=== PATIENT | male | born 1990 | race Caucasian/White ===

== ENCOUNTER 2016-10-27 20:38 | Emergency (ER) | payer OTHER ==
--- NOTE | 2016-10-27 21:54 | XRAY Preliminary Report ---
Exam: XR Chest 2 View PA/LAT IMPRESSION: 1. Bronchial wall thickening noted. Findings non specific but often seen in viral pneumonitis and re active airway disease. 2. No consolidation. [facility] SITE ID: [id number]
--- NOTE | 2016-10-27 21:57 | XRAY Report ---
EXAM: CHEST RADIOGRAPHY EXAM DATE: 10/27/2016 09:40 PM. CLINICAL HISTORY: Wheezing. COMPARISON: 11/30/2008. TECHNIQUE: 2 views. FINDINGS: Lungs/Pleura: Perihilar bronchial wall thickening noted. No consolidation. No effusion or pneumothor ax. Normal volumes. Mediastinum: Heart and mediastinal contours are unremarkable. Other: None. IMPRESSION: 1. Bronchial wall thickening noted. Findings non specific but often seen in viral pneumonitis and re active airway disease. 2. No consolidation. [facility] Referring Provider Line: [phone] SITE ID: [id number]
[2016-10-27] MEDS ORDERED: predniSONE 20 MG TABLET PO STA (22:33)
[2016-10-27] MEDS ORDERED: IPRATROPIUM/ALBUTEROL 3 ML NEB INH STA (22:34)
--- NOTE | 2016-10-27 22:37 | ED Physician Documentation ---
PD HPI URI - Stated complaint Stated Complaint: SOA/COUGH - Chief complaint Chief Complaint: Resp - History obtained from History obtained from: Patient, Family - History of Present Illness Timing - onset: How many weeks ago (1) Timing duration: Weeks (1) Timing details: Gradual onset Pain level max: 2 Pain level now: 2 Associated symptoms: Nasal congestion, Rhinorrhea, Productive cough (green), Dyspnea (wheezing). No: Fever, Chills, Sweats, Hemoptysis, Chest pain Contributing factors: Sick contact Improves by: MDI/nebulizer (albuterol, combivent) Worsened by: Activity, Breathing Similar symptoms before: Diagnosis (uri with wheezing) Recently seen: Not recently seen Review of Systems Constitutional: denies: Fever, Chills Nose: reports: Rhinorrhea / runny nose, Congestion Respiratory: reports: Cough, Wheezing GI: denies: Vomiting Skin: denies: Rash Musculoskeletal: denies: Neck pain, Back pain Neurologic: denies: Headache PD PAST MEDICAL HISTORY - Past Medical History Respiratory: Asthma Neuro: Headache/migraine GI: Crohn's disease - Past Surgical History Past Surgical History: Yes General: Colonoscopy HEENT: Tonsil/Adenoidectomy - Present Medications Home Medications: Ambulatory Orders Medication Instructions Recorded Confirmed Albuterol Sulf [Ventolin Hfa 2 puffs INH Q4HR PRN #1 inhaler 10/27/16 10/29/16 Inhaler] Albuterol Sulfate [Proventil Hfa 1 - 2 puffs INH Q4H PRN 10/27/16 10/29/16 Inhaler] Benzonatate [Tessalon Perle] 100 - 200 mg PO TID PRN #30 capsule 10/27/16 Ipratropium/Albuterol [Combivent 4 gm IH PRN PRN 10/27/16 10/29/16 Respimat] Prednisone 40 mg PO DAILY #10 tablet 10/27/16 10/29/16 Azithromycin [Zithromax] 250 mg PO DAILY #4 tablet 10/29/16 Omeprazole [PriLOSEC] 20 mg PO DAILY #14 capsule 10/29/16 - Allergies Allergies/Adverse Reactions: Allergies Allergy/AdvReac Type Severity Reaction Status Date / Time cefaclor [From Ceclor] Allergy Intermediate Hives Verified 11/11/15 23:30 mesalamine [From Asacol] Allergy Intermediate Hives Verified 11/11/15 23:30 Sulfa (Sulfonamide Allergy Intermediate Hives Verified 11/11/15 23:30 Antibiotics) - Social History Does the pt smoke?: No Smoking Status: Never smoker Does the pt drink ETOH?: Yes Does the pt have substance abuse?: No - Immunizations Immunizations are current?: Yes - POLST Patient has POLST: No PD ED PE NORMAL - Vitals Vital signs reviewed: Yes - General General: Alert and oriented X 3, No acute distress, Well developed/nourished - HEENT HEENT: PERRL, Ears normal, Moist mucous membranes, Pharynx benign, Other (no sinus tenderness) - Neck Neck: Supple, no meningeal sign, No adenopathy - Cardiac Cardiac: RRR, Strong equal pulses - Respiratory Respiratory: No respiratory distress, Other (wheezing and decreased BS bilaterally. ) - Abdomen Abdomen: Soft, Non tender, Non distended - Derm Derm: Warm and dry - Neuro Neuro: Alert and oriented X 3 - Psych Psych: Normal mood, Normal affect Results - Vitals Vitals: Oxygen O2 Source Room air - Rads (name of study) cxr Radiology: Prelim report reviewed, EMP read contemporaneously, See rad report ( Bronchial wall thickening noted. Findings non specific but often seen in viral pneumonitis and reactive airway disease. 2. No consolidation. ) PD MEDICAL DECISION MAKING - ED course Complexity details: reviewed results, re-evaluated patient, considered differential, d/w patient, d/w family ED course: Patient is a 25-year-old male who presents to the emergency department with what appears to be a viral upper respiratory infection complicated by his asthma. Will place on steroids for home. We will also refill his albuterol inhaler in place on cough medication. He is well-appearing, nontoxic. Afebrile. Patient counseled regarding signs and symptoms for which I believe and urgent re-evaluation would be necessary. Patient with good understanding of and agreement to plan and is comfortable going home at this time This document was made in part using voice recognition software. While efforts are made to proofread this document, sound alike and grammatical errors may occur. Departure - Departure Disposition: 01 Home, Self Care Clinical Impression: Asthma exacerbation, Viral URI Condition: Good Instructions: ED Viral Syndrome Follow-Up: Rodo Hamilton MD [Primary Care Provider] - Within 1 week Prescriptions: Albuterol Sulf [Ventolin Hfa Inhaler] 2 puffs INH Q4HR PRN #1 inhaler PRN Reason: Wheezing Prednisone 40 mg PO DAILY #10 tablet Benzonatate [Tessalon Perle] 100 - 200 mg PO TID PRN #30 capsule PRN Reason: Cough Comments: Return if you worsen. This should improve over the next few days. Forms: Activity restrictions Discharge Date/Time: 10/27/16 23:08
[2016-10-27] MEDS ORDERED: predniSONE 20 MG TABLET ONE (22:43)
[2016-10-27] MEDS ORDERED: IPRATROPIUM/ALBUTEROL 3 ML NEB INH ONE (22:44)
[2016-10-27 23:08] VITALS: BP 131/85
== END 2016-10-27 23:08 | disposition home or self-care (01) ==
LOC: ED 20:38
DX: J45.901 Unspecified asthma with (acute) exacerbation (principal); J06.9 Acute upper respiratory infection, unspecified; B34.9 Viral infection, unspecified
CPT/HCPCS: 71020; 94640; 94664; 99283; J7512; J7620

== ENCOUNTER 2016-10-29 18:22 | Emergency (ER) | payer OTHER ==
[2016-10-29] MEDS ORDERED: HYDROmorphone 1 MG/ML CARPUJECT IVP STA (19:19)
--- NOTE | 2016-10-29 19:22 | ED Physician Documentation ---
History of Present Illness - Stated complaint Stated Complaint: CHEST PX/SOA - Chief complaint Chief Complaint: General - History obtained from History obtained from: Patient, Family - History of Present Illness Timing: Other (25-year-old gentleman with history of asthma and Crohn's disease , not currently on any immune modulators. He was here 2 nights ago for cough and URI symptoms, chest x-ray showed a viral pattern, no pneumonia. He was getting better on steroids and tonight around 5:00 had sudden onset severe epigastric/central chest pain with shortness of breath within the last couple of hours without radiation to the back, vomiting, or pedal edema or calf pain.) Review of Systems Ten Systems: 10 systems reviewed and negative Constitutional: reports: Chills, Myalgias. denies: Fever Nose: denies: Rhinorrhea / runny nose, Congestion Cardiac: reports: Chest pain / pressure. denies: Palpitations, Pedal edema, Calf pain Respiratory: reports: Dyspnea, Cough PD PAST MEDICAL HISTORY - Past Medical History Respiratory: Asthma Neuro: Headache/migraine GI: Crohn's disease - Past Surgical History Past Surgical History: Yes General: Colonoscopy HEENT: Tonsil/Adenoidectomy - Present Medications Home Medications: Ambulatory Orders Medication Instructions Recorded Confirmed Albuterol Sulf [Ventolin Hfa 2 puffs INH Q4HR PRN #1 inhaler 10/27/16 10/29/16 Inhaler] Albuterol Sulfate [Proventil Hfa 1 - 2 puffs INH Q4H PRN 10/27/16 10/29/16 Inhaler] Benzonatate [Tessalon Perle] 100 - 200 mg PO TID PRN #30 capsule 10/27/16 Ipratropium/Albuterol [Combivent 4 gm IH PRN PRN 10/27/16 10/29/16 Respimat] Prednisone 40 mg PO DAILY #10 tablet 10/27/16 10/29/16 Azithromycin [Zithromax] 250 mg PO DAILY #4 tablet 10/29/16 Omeprazole [PriLOSEC] 20 mg PO DAILY #14 capsule 10/29/16 - Allergies Allergies/Adverse Reactions: Allergies Allergy/AdvReac Type Severity Reaction Status Date / Time cefaclor [From Ceclor] Allergy Intermediate Hives Verified 11/11/15 23:30 mesalamine [From Asacol] Allergy Intermediate Hives Verified 11/11/15 23:30 Sulfa (Sulfonamide Allergy Intermediate Hives Verified 11/11/15 23:30 Antibiotics) - Social History Does the pt smoke?: No Smoking Status: Never smoker Does the pt drink ETOH?: Yes Does the pt have substance abuse?: No - Immunizations Immunizations are current?: Yes - POLST Patient has POLST: No PD ED PE NORMAL - Vitals Vital signs reviewed: Yes (Modest hypoxemia and tachypnea) - General General: Alert and oriented X 3, No acute distress - HEENT HEENT: PERRL, EOMI - Neck Neck: Supple, no meningeal sign, No bony TTP - Cardiac Cardiac: RRR, No murmur - Respiratory Respiratory: Other (Diffuse rhonchi and decreased air motion) - Abdomen Abdomen: Normal bowel sounds, Soft, Non tender - Back Back: No CVA TTP, No spinal TTP - Derm Derm: Normal color, Warm and dry - Extremities Extremities: No edema, No calf tenderness / cord - Neuro Neuro: Alert and oriented X 3, Normal speech - Psych Psych: Normal mood, Normal affect Results - Vitals Vitals: Vital Signs - 24 hr 10/29/16 18:29 Temperature 36.8 C Heart Rate 67 Respiratory 33 H Rate Blood Pressure 152/94 H O2 Saturation 90 L Oxygen O2 Source Room air - EKG (time done) 1841 Rate: Rate (enter#) (77) Rhythm: NSR [place]: Normal Intervals: Normal [place] QRS: Normal Ischemia: Non specific changes (mild scoop inferolateral ST-t). No: ST elevation c/w ischemia Compare to prior EKG: Old EKG unavailable Computer interpretation: Agree with computer - Labs Labs: Laboratory Tests 10/29/16 10/29/16 10/29/16 18:40 18:40 18:40 WBC 18.9 H RBC 4.97 Hgb 13.9 L Hct 41.9 L MCV 84.3 MCH 27.9 MCHC 33.1 RDW 13.1 Plt Count 465 H MPV 7.9 Neut # 15.3 H Lymph # 2.3 [place] # 1.1 H Eos # 0.0 Baso # 0.2 H Absolute Nucleated RBC 0.00 Nucleated RBCs 0.0 D-Dimer < 200.0 L Sodium 138 Potassium 3.3 L Chloride 102 Carbon Dioxide 24 Anion Gap 12.0 BUN 22 H Creatinine 1.0 Estimated GFR (MDRD) 91 Glucose 109 H Calcium 10.1 Total Bilirubin 0.4 AST 40 ALT 30 Alkaline Phosphatase 91 Total Protein 8.6 H Albumin 5.0 Globulin 3.6 Albumin/Globulin Ratio 1.4 Lipase 34 - Rads (name of study) CXR Radiology: EMP read contemporaneously (Right lower lobe posterior bronchial wall thickening without new disease) PD MEDICAL DECISION MAKING - ED course ED course: 25-year-old gentleman with history of Crohn's disease presents with epigastric and central low chest pain that was fairly sudden onset in the setting of being on a couple of days of steroids for bronchitis-like syndrome symptoms. PE was considered given the hypoxemia but d-dimer was negative. Chest x-ray was unchanged. He does have a leukocytosis, given the syndrome seems less likely from infection and more likely from being on steroids. He was nontender. Then he had complete relief from a GI cocktail clinching the diagnosis of steroid- induced gastritis and was started on a PPI. His pulse oximetry was better after treatment here, still not normal, but in the 93-94% range. Departure - Departure Disposition: Home, Self Care Clinical Impression: Bronchitis Gastritis Qualifiers: Gastritis type: unspecified gastritis Chronicity: acute Gastritis bleeding: without bleeding Qualified Code(s): K29.00 - Acute gastritis without bleeding Condition: Good Record reviewed to determine appropriate education?: Yes Instructions: ED Gastritis, ED Bronchitis Asthmatic Prescriptions: Omeprazole [PriLOSEC] 20 mg PO DAILY #14 capsule Azithromycin [Zithromax] 250 mg PO DAILY #4 tablet Comments: Stop the steroids as discussed, they are upsetting your stomach. Return if worse. Your blood pressure was elevated today on check into the emergency department. This does not mean that you have hypertension, it is a common phenomenon to come to the emergency department and have elevated blood pressure. I recommend that she see your primary care physician within the week to have it rechecked when you are feeling better. Call your doctor to arrange a follow-up appointment, make the next available appointment. In the interim, return anytime if worse or if new symptoms develop.
[2016-10-29 19:25] LABS: BASOPHILS # (AUTO) 0.2 10^3/uL (0.0-0.1); BASOPHILS % (AUTO) 0.9 %; EOSINOPHILS % (AUTO) 0.1 %; HCT - HEMATOCRIT 41.9 % (42.0-52.0); HGB - HEMOGLOBIN 13.9 g/dL (14.0-18.0); LYMPHOCYTES # (AUTO) 2.3 10^3/uL (1.5-3.5); LYMPHOCYTES % (AUTO) 12.3 %; MEAN CORPUSCULAR HEMOGLOBIN 27.9 pg (27.0-31.0); MEAN CORPUSCULAR HGB CONC 33.1 g/dL (32.0-36.0); MEAN CORPUSCULAR VOLUME 84.3 fL (80.0-94.0); MEAN PLATELET VOLUME 7.9 fL (7.4-11.4); MONOCYTES # (AUTO) 1.1 10^3/uL (0.0-1.0); MONOCYTES % (AUTO) 5.8 %; NEUTROPHILS # (AUTO) 15.3 10^3/uL (1.5-6.6); NEUTROPHILS % (AUTO) 80.9 %; RED BLOOD COUNT 4.97 10^6/uL (4.70-6.10); RED CELL DISTRIBUTION WIDTH 13.1 % (12.0-15.0); UNCORRECTED WHITE BLOOD COUNT 18.9 x10^3/uL; WHITE BLOOD COUNT 18.9 x10^3/uL (4.8-10.8)
[2016-10-29 19:42] LABS: ALBUMIN/GLOBULIN RATIO 1.4 (1.0-2.2); BILIRUBIN,TOTAL 0.4 mg/dL (0.2-1.0); CALCIUM 10.1 mg/dL (8.5-10.3); POTASSIUM 3.3 mmol/L (3.5-5.0); TOTAL PROTEIN 8.6 g/dL (6.7-8.2)
[2016-10-29] MEDS ORDERED: HYDROmorphone 1 MG/ML CARPUJECT ONE (20:02)
--- NOTE | 2016-10-29 20:17 | XRAY Preliminary Report ---
Exam: XR Chest 2 View PA/LAT IMPRESSION: Right lower lobe posterior bronchial wall thickening appears unchanged. No consolidation or airspace disease is seen. [facility] SITE ID: [id number]
--- NOTE | 2016-10-29 20:20 | XRAY Report ---
EXAM: CHEST RADIOGRAPHY EXAM DATE: 10/29/2016 07:48 PM. CLINICAL HISTORY: Chest pain, dyspnea, hypoxemia. COMPARISON: Chest 10/27/2016. TECHNIQUE: 2 views. FINDINGS: Lungs/Pleura: Right lower lobe posterior bronchial wall thickening appears unchanged. No consolidatio n or airspace disease is seen. No pleural effusion or pneumothorax. Mediastinum: Heart and mediastinal contours are unremarkable. IMPRESSION: Right lower lobe posterior bronchial wall thickening appears unchanged. No consolidation or airspace disease is seen. [facility] Referring Provider Line: [phone] SITE ID: [id number]
[2016-10-29] MEDS ORDERED: MAG HYDROX/AL HYDROX/SIMETH 30 ML UDC PO STA (20:23)
[2016-10-29] MEDS ORDERED: LIDOCAINE VISCOUS 2% 15 ML UDC MM STA (20:23)
[2016-10-29] MEDS ORDERED: MAG HYDROX/AL HYDROX/SIMETH 30 ML UDC ONE (20:45)
[2016-10-29] MEDS ORDERED: LIDOCAINE VISCOUS 2% 15 ML UDC MM ONE (20:45)
[2016-10-29] MEDS ORDERED: AZITHROMYCIN 250 MG TABLET PO STA (21:27)
[2016-10-29] MEDS ORDERED: PANTOPRAZOLE 40 MG TABLET PO STA (21:27)
[2016-10-29] MEDS ORDERED: AZITHROMYCIN 250 MG TABLET PO ONE (21:36)
[2016-10-29] MEDS ORDERED: PANTOPRAZOLE 40 MG TABLET ONE (21:36)
[2016-10-29 21:37] VITALS: BP 119/79
== END 2016-10-29 21:44 | disposition home or self-care (01) ==
LOC: ED 18:22
DX: J40 Bronchitis, not specified as acute or chronic (principal); K29.00 Acute gastritis without bleeding; R09.02 Hypoxemia; R03.0 Elevated blood-pressure reading, without diagnosis of hypertension
CPT/HCPCS: 36415; 71020; 80053; 83690; 85025; 85379; 93005; 96374; 99283; 99285; A9270; J1170

== ENCOUNTER 2019-05-17 21:23 | Outpatient (CLI) | payer OTHER | END 2019-05-17 21:24 | disposition critical access hospital (66) | LOC: EMS 21:23 | PROVIDERS: ATTEND Surgery | DX: T17.900A Unspecified foreign body in respiratory tract, part unspecified causing asphyxiation, initial encounter (principal) | CPT/HCPCS: A0425; A0433 ==

== ENCOUNTER 2019-05-17 21:39 | Inpatient (IN) | payer OTHER ==
[2019-05-17] MEDS ORDERED: NALOXONE 0.4 MG/ML VIAL ONE (21:50)
[2019-05-17] MEDS ORDERED: NALOXONE 0.4 MG/ML VIAL IVP ONE (21:50)
--- NOTE | 2019-05-17 21:50 | ED Physician Documentation ---
History of Present Illness - Stated complaint Stated Complaint: FB OBSTRUCTION, CPR - History obtained from History obtained from: EMS (the patient is a 28 y/o m brought in by ems. EMS reports that he was with a friend when he became unresponsive and then aspirated EMS reports that a checked his blood sugar which was greater than 200 they gave him etomidate, succinylcholine and intubated the patient with a 8.0 endotracheal tube and transferred him to the emergency room for further evaluation. the nursing staff spoke to the mother who reports that he has a history of opioid overdose. The remainder the history is unknown.) Review of Systems Unable to obtain: Intubated PD PAST MEDICAL HISTORY - Past Medical History Respiratory: Asthma GI: Crohn's disease - Past Surgical History Past Surgical History: Yes General: Colonoscopy HEENT: Tonsil/Adenoidectomy - Present Medications Home Medications: Ambulatory Orders Medication Instructions Recorded Confirmed Albuterol Sulf [Ventolin Hfa 2 puffs INH Q4HR PRN #1 inhaler 10/27/16 10/29/16 Inhaler] Albuterol Sulfate [Proventil Hfa 1 - 2 puffs INH Q4H PRN 10/27/16 10/29/16 Inhaler] Ipratropium/Albuterol [Combivent 4 gm IH PRN PRN 10/27/16 10/29/16 Respimat] - Allergies Allergies/Adverse Reactions: Allergies Allergy/AdvReac Type Severity Reaction Status Date / Time cefaclor [From Ceclor] Allergy Intermediate Hives Verified 05/17/19 21:45 mesalamine [From Asacol] Allergy Intermediate Hives Verified 05/17/19 21:45 Sulfa (Sulfonamide Allergy Intermediate Hives Verified 05/17/19 21:45 Antibiotics) - Social History Does the pt smoke?: No Smoking Status: Never smoker Does the pt drink ETOH?: Yes Does the pt have substance abuse?: No - Immunizations Immunizations are current?: Yes - POLST Patient has POLST: No PD ED PE NORMAL - General General: Other (Unresponsive, pupils are pinpoint, intubated with a 8.0 endotracheal tube) - HEENT HEENT: Atraumatic, Other (Intubated, trachea midline 8.0 endotracheal tube secured at 24 cm at the teeth vomit in the posterior oropharynx pupils are pinpoint.) - Cardiac Cardiac: RRR, Strong equal pulses - Respiratory Respiratory: No respiratory distress, Other (Patient intubated with endotracheal tube breath sounds are present bilaterally as diffuse rhonchi and in the left lateral lung field) - Abdomen Abdomen: Normal bowel sounds, Soft, Non tender, Non distended, No organomegaly - Male Male : Other (No signs of trauma no blood at the urethral meatus testicles descended bilaterally) - Back Back: Other (No step-offs or deformities of the cervical, thoracic, lumbar sacral spine) - Derm Derm: Normal color, Warm and dry, No rash - Extremities Extremities: No deformity - Neuro Neuro: Other (Unresponsive patient has been paralyzed with succinylcholine) Results - Vitals Vitals: Vital Signs - 24 hr 05/17/19 05/17/19 05/17/19 21:45 21:51 22:14 Temperature 36.4 C L Heart Rate 98 95 103 H Respiratory 18 18 18 Rate Blood Pressure 111/65 111/65 130/80 O2 Saturation 91 L 96 100 05/17/19 05/17/19 05/17/19 22:31 22:32 22:42 Temperature 36.6 C Heart Rate 113 H 113 H 117 H Respiratory 18 18 20 Rate Blood Pressure 131/88 H 131/98 H 148/111 H O2 Saturation 100 100 100 05/17/19 05/17/19 22:54 23:00 Temperature Heart Rate 102 H 98 Respiratory 20 20 Rate Blood Pressure 134/86 H 133/97 H O2 Saturation 100 100 Oxygen O2 Source Room air - EKG (time done) 21:45 Rate: Other (no stemi) - Labs Labs: Laboratory Tests 05/17/19 05/17/19 05/17/19 21:50 21:50 21:50 WBC 11.1 H RBC 4.56 L Hgb 13.5 L Hct 42.0 MCV 92.1 MCH 29.6 MCHC 32.1 RDW 12.2 Plt Count 381 MPV 9.1 Neut # (Auto) 6.3 Lymph # (Auto) 3.2 [place] # (Auto) 0.8 Eos # (Auto) 0.3 Baso # (Auto) 0.1 Absolute Nucleated RBC 0.00 Nucleated RBC % 0.0 PT INR APTT Sodium Potassium Chloride Carbon Dioxide Anion Gap BUN Creatinine Estimated GFR (MDRD) Glucose Lactic Acid 3.1 H* Calcium Phosphorus Magnesium Total Bilirubin AST ALT Alkaline Phosphatase Total Creatine Kinase Troponin I High Sens 17.4 Total Protein Albumin Globulin Albumin/Globulin Ratio Lipase Urine Color Urine Clarity Urine pH Ur Specific [place] Urine Protein Urine Glucose (UA) Urine Ketones Urine Occult Blood Urine Nitrite Urine Bilirubin Urine Urobilinogen Ur Leukocyte Esterase Urine RBC Urine WBC Ur Squamous Epith Cells Urine Bacteria Urine Casts Urine Mucus Ur Microscopic Review Urine Culture Comments Salicylates Urine Opiates Screen Ur Oxycodone Screen Urine Methadone Screen Ur Propoxyphene Screen Acetaminophen Ur Barbiturates Screen Ur Tricyclics Screen Ur Phencyclidine Scrn Ur Amphetamine Screen U Methamphetamines Scrn U Benzodiazepines Scrn Urine Cocaine Screen U Cannabinoids Screen Ethyl Alcohol 05/17/19 05/17/19 05/17/19 21:50 22:11 22:11 WBC RBC Hgb Hct MCV MCH MCHC RDW Plt Count MPV Neut # (Auto) Lymph # (Auto) [place] # (Auto) Eos # (Auto) Baso # (Auto) Absolute Nucleated RBC Nucleated RBC % PT 12.6 INR 1.1 APTT 29.6 Sodium 135 Potassium 3.8 Chloride 100 L Carbon Dioxide 26 Anion Gap 9.0 BUN 20 Creatinine 1.2 Estimated GFR (MDRD) 72 L Glucose 201 H Lactic Acid Calcium 8.3 L Phosphorus 6.5 H Magnesium 2.3 Total Bilirubin 0.4 AST 136 H ALT 127 H Alkaline Phosphatase 77 Total Creatine Kinase 159 Troponin I High Sens Total Protein 6.9 Albumin 3.9 Globulin 3.0 Albumin/Globulin Ratio 1.3 Lipase 29 Urine Color YELLOW Urine Clarity CLEAR Urine pH 5.5 Ur Specific [place] >=1.030 H Urine Protein 100 H Urine Glucose (UA) NEGATIVE Urine Ketones NEGATIVE Urine Occult Blood TRACE-INTA Urine Nitrite NEGATIVE Urine Bilirubin NEGATIVE Urine Urobilinogen 0.2 (NORMAL) Ur Leukocyte Esterase NEGATIVE Urine RBC 6-10 H Urine WBC 0-3 Ur Squamous Epith Cells RARE Squamous Urine Bacteria Rare Urine Casts 6-10 Hyaline Casts Urine Mucus Few Strands Ur Microscopic Review INDICATED Urine Culture Comments NOT INDICATED Salicylates < 6.0 Urine Opiates Screen NEGATIVE Ur Oxycodone Screen NEGATIVE Urine Methadone Screen NEGATIVE Ur Propoxyphene Screen NEGATIVE Acetaminophen < 10 L Ur Barbiturates Screen NEGATIVE Ur Tricyclics Screen NEGATIVE Ur Phencyclidine Scrn NEGATIVE Ur Amphetamine Screen NEGATIVE U Methamphetamines Scrn NEGATIVE U Benzodiazepines Scrn NEGATIVE Urine Cocaine Screen NEGATIVE U Cannabinoids Screen NEGATIVE Ethyl Alcohol < 5.0 PD MEDICAL DECISION MAKING - ED course Complexity details: reviewed old records, reviewed results, re-evaluated patient, considered differential (Patient initially evaluated by myself he did have pinpoint pupils he was given 0.4 mg of Narcan he immediately woke up and was moving all extremities his pupils are now 7 mm and reactive he is trying to remove his endotracheal tube, the patient clearly is at risk for aspiration and is likely aspirated prior to arrival at this point patient was chemically sedated I labs and imaging were sent CT scan of the head unremarkable chest x- ray is concerning for left-sided aspiration pneumonia he has a documented allergy to cephalosporins patient will be given 1 dose of IV clindamycin and admitted to the intensive care unit.), d/w family, d/w payroll consultant - Consults Consults: Consulted (name) (dr butler), Request payroll consultant evaluate patient, Request payroll consultant admit patient (will admit to icu) - Critical Care Time(min): 74 Time Includes: Direct patient care, Review records, Reassess patient, Document care, Coordinate care, Medical consult, Family consult for tx dec Data interpretation: Labs, CXR Procedures included in critical care time: Peripheral IV, Gastric intubation, Ventilator mgmt Procedures excluded from critical care time: EKG Departure - Departure Disposition: 66 [facility] DC/Xfer Clinical Impression: Overdose Qualifiers: Encounter type: initial encounter Injury intent: undetermined intent Qualified Code(s): T50.904A - Poisoning by unspecified drugs, medicaments and biological substances, undetermined, initial encounter Aspiration into airway Qualifiers: Encounter type: initial encounter Qualified Code(s): T17.908A - Unspecified foreign body in respiratory tract, part unspecified causing other injury, initial encounter Condition: Critical Discharge Date/Time: 05/17/19 23:35
[2019-05-17] MEDS ORDERED: SODIUM CHLORIDE 0.9% 1,000 ML IV ONE (21:54)
[2019-05-17 21:57] LABS: MUDS CUTOFF CONCENTRATIONS CUTOFF CONC BELOW:
[2019-05-17 22:00] LABS: BASOPHILS # (AUTO) 0.1 10^3/uL (0.0-0.1); BASOPHILS % (AUTO) 0.8 %; BILIRUBIN,URINE NEGATIVE (NEGATIVE); EOSINOPHILS # (AUTO) 0.3 10^3/uL (0.0-0.7); EOSINOPHILS % (AUTO) 2.8 %; GLUCOSE, URINE (UA) NEGATIVE (NEGATIVE); HGB - HEMOGLOBIN 13.5 g/dL (14.0-18.0); KETONES,URINE (UA) NEGATIVE (NEGATIVE); LEUKOCYTE ESTERASE, URINE NEGATIVE (NEGATIVE); LYMPHOCYTES # (AUTO) 3.2 10^3/uL (1.5-3.5); LYMPHOCYTES % (AUTO) 28.5 %; MEAN CORPUSCULAR HEMOGLOBIN 29.6 pg (27.0-31.0); MEAN CORPUSCULAR HGB CONC 32.1 g/dL (32.0-36.0); MEAN CORPUSCULAR VOLUME 92.1 fL (80.0-94.0); MEAN PLATELET VOLUME 9.1 fL (7.4-11.4); MONOCYTES # (AUTO) 0.8 10^3/uL (0.0-1.0); MONOCYTES % (AUTO) 7.5 %; NEUTROPHILS # (AUTO) 6.3 10^3/uL (1.5-6.6); NEUTROPHILS % (AUTO) 56.7 %; NITRITE,URINE NEGATIVE (NEGATIVE); OCCULT BLOOD,URINE TRACE-INTA (NEGATIVE); PH,URINE 5.5 PH (5.0-7.5); PLT - PLATELET COUNT 381 10^3/uL (130-450); PROTEIN,URINE 100 mg/dL (NEGATIVE); RED BLOOD COUNT 4.56 10^6/uL (4.70-6.10); RED CELL DISTRIBUTION WIDTH 12.2 % (12.0-15.0); UROBILINOGEN,URINE 0.2 (NORMAL) E.U./dL (NORMAL); WHITE BLOOD COUNT 11.1 x10^3/uL (4.8-10.8)
[2019-05-17 22:01] LABS: CLARITY,URINE CLEAR (CLEAR)
[2019-05-17] MEDS ORDERED: PROPOFOL 200 MG/20 ML VIAL IVP ONE (22:02)
[2019-05-17] MEDS ORDERED: PROPOFOL 1000 MG/100 ML 100 ML IV ONE (22:07)
[2019-05-17 22:08] LABS: BACTERIA,URINE Rare /HPF (None Seen); SQUAMOUS EPITHELIAL CELL,UR RARE Squamous (<= Few)
[2019-05-17 22:09] LABS: CASTS, URINE 6-10 Hyaline Casts /LPF; MUCUS,URINE Few Strands
[2019-05-17 22:11] LABS: AMPHETAMINE SCREEN,URINE NEGATIVE (NEGATIVE); BENZODIAZEPINES SCREEN, URINE NEGATIVE (NEGATIVE); COCAINE SCREEN URINE NEGATIVE (NEGATIVE); METHADONE SCREEN, URINE NEGATIVE (NEGATIVE); METHAMPHETAMINES SCREEN, URINE NEGATIVE (NEGATIVE); OPIATE SCREEN, URINE NEGATIVE (NEGATIVE); OXYCODONE SCREEN, URINE NEGATIVE (NEGATIVE); PROPOXYPHENE SCREEN, URINE NEGATIVE (NEGATIVE); TRICYCLIC ANTIDEPRESSANT,URINE NEGATIVE (NEGATIVE)
[2019-05-17] MEDS ORDERED: VECURONIUM 10 MG VIAL IVP STA (22:11)
[2019-05-17] MEDS ORDERED: ROCURONIUM 50 MG/5 ML VIAL IVP STA (22:14)
[2019-05-17] MEDS ORDERED: ROCURONIUM 50 MG/5 ML VIAL ONE (22:16)
[2019-05-17] MEDS ORDERED: CLINDAMYCIN 900 MG/50 ML 50 ML IV ONE (22:17)
[2019-05-17 22:21] LABS: INR 1.1 (0.8-1.2); PT - PROTHROMBIN TIME 12.6 secs (9.9-12.6)
[2019-05-17 22:28] LABS: PARTIAL THROMBOPLASTIN TIME 29.6 secs (24.9-33.3)
[2019-05-17 22:31] LABS: ACETAMINOPHEN < 10 ug/mL (10-30); ALBUMIN 3.9 g/dL (3.2-5.5); ALBUMIN/GLOBULIN RATIO 1.3 (1.0-2.2); ALKALINE PHOSPHATASE 77 IU/L (42-121); ALT ALANINE AMINOTRANSFERASE 127 IU/L (10-60); AST ASPARTATE AMINOTRANSFERASE 136 IU/L (10-42); BILIRUBIN,TOTAL 0.4 mg/dL (0.2-1.0); BUN - BLOOD UREA NITROGEN 20 mg/dL (6-20); CALCIUM 8.3 mg/dL (8.5-10.3); CARBON DIOXIDE - CO2 26 mmol/L (21-32); CHLORIDE 100 mmol/L (101-111); CK- CREATINE KINASE 159 IU/L (22-269); CREATININE 1.2 mg/dL (0.6-1.2); GLUCOSE 201 mg/dL (70-100); LIPASE 29 U/L (22-51); MAGNESIUM 2.3 mg/dL (1.7-2.8); PHOSPHORUS 6.5 mg/dL (2.5-4.6); SALICYLATE < 6.0 mg/dL; SODIUM 135 mmol/L (135-145); TOTAL PROTEIN 6.9 g/dL (6.7-8.2)
--- NOTE | 2019-05-17 22:34 | XRAY Report ---
Reason: tube placement Procedure Date: 05/17/2019 Accession Number: [id number] / [id number] Procedure: XR - Chest 1 View X-Ray CPT Code: 30537 Final Report FULL RESULT: EXAM: CHEST RADIOGRAPHY EXAM DATE: 05/17/2019 09:55 PM. CLINICAL HISTORY: Tube placement. COMPARISON: CHEST 2 VIEW PA/LAT 10/29/2016 7:34 PM. TECHNIQUE: 1 view. FINDINGS: Lines and tubes: Tip of endotracheal tube terminates approximately 2 cm above the matthew. Lungs/Pleura: Extensive left perihilar airspace disease. No large pleural effusions or pneumothorax. Mediastinum: Within exam limitations, the cardiomediastinal contour is normal. Osseous structures: No significant focal osseous lesions. IMPRESSION: 1. Tip of endotracheal tube terminates approximately 2 cm above the matthew. 2. Extensive left perihilar airspace disease. [facility]
--- NOTE | 2019-05-17 23:08 | CT Report ---
Reason: unresponsive Procedure Date: 05/17/2019 Accession Number: [id number] / [id number] Procedure: CT - HEAD WO CPT Code: Final Report FULL RESULT: EXAM: CT HEAD EXAM DATE: 05/17/2019 10:29 PM. CLINICAL HISTORY: Unresponsive. COMPARISON: None. TECHNIQUE: Multiaxial CT images were obtained from the foramen magnum to the vertex. Reformats: Sagittal and coronal. IV contrast: None. In accordance with CT protocol optimization, one or more of the following dose reduction techniques were utilized for this exam: automated exposure control, adjustment of mA and/or KV based on patient size, or use of iterative reconstructive technique. FINDINGS: Parenchyma: No intraparenchymal hemorrhage. No evidence of mass, midline shift, or CT findings of infarction. Ng-white differentiation is distinct. Extraaxial Spaces: Normal for age. No subdural or epidural collections identified. Ventricles: Normal in size and position. Sinuses and Orbits: Imaged paranasal sinuses, orbits, and mastoids show no significant abnormality. Bones: No evidence of fracture or calvarial defect. Other: None. IMPRESSION: Normal head CT. [facility]
[2019-05-17] MEDS ORDERED: LACTATED RINGERS 1,000 ML IV ONE (23:21)
[2019-05-17] MEDS ORDERED: MIDAZOLAM 50 MG/10 ML VIAL IVP PRN (23:24)
--- NOTE | 2019-05-17 23:28 | HISTORY & PHYSICAL EXAMINATION ---
Chief Complaint - Chief Complaint Chief Complaint: Unresponsiveness History of Present Illness - Admitted From Admitted From:: Home - History Obtained From Records Reviewed: Yes History obtained from: ER Physician, Mother Exam Limitations: Patient is intubated. - History of Present Illness HPI Comment/Other: This is a 28-year-old male with a past medical history significant for Crohn's disease not currently on therapy, asthma, history of opiate abuse, migraines who presents today from home via ambulance after he made found him unresponsive. History is obtained from the emergency department staff as well as the patient's mother as he is intubated. Per staff, the patient was playing video games with his roommate at home when his mate looked over and found the patient unresponsive and slumped over. The patient began CPR for 7 minutes until EMS arrival. The patient's roommate noted that he found blue pills and a drink in the patient's room. Upon EMS arrival, the patient was found to have a pulse but agonal respirations. He was intubated in the field. Upon arrival to our emergency department, the patient received Narcan and immediately he woke up and attempted to get out of bed. He was sedated immediately after on propofol and received rocuronium. The patient had large amounts of food like substance s uctioned from his endotracheal tube. There was concern that he had aspirated at home. I spoke with the patient's mother at bedside and she states that she spoke to patient earlier on today and he was doing relatively well. She states he was complaining of a headache which is not unusual for him given his history of migraines. He told his mother that he took Benadryl earlier on in the day. His mother states he normally does not take Tylenol as it upsets his stomach. The patient is currently not taking any medications for his migraines or Crohn's disease. She states he does have a history of opiate abuse in the past but to her knowledge, she does not know if he used anything today. She reports he also does not have a history of IV drug use and has never used meth or heroin to her knowledge. She states he was hospitalized quite a few years ago after he took nearly 90 tablets of Xanax. She states that at that time, the patient's mother was undergoing treatment for breast cancer and underwent a bilateral mastectomy. Her unfortunately left her during this period of time and this put the patient in a difficult family situation which made him quite upset. The patient mother feels that he took the Xanax not to end his life but more as a coping mechanism for the situation at a time. She states he was scheduled to see a psychiatrist last month but that was canceled due to the current pandemic with the novel coronavirus. She states that patient felt like he had a cold a few weeks ago but did not seek medical attention. She stated to her knowledge, he has not come in contact with anybody who has a novel coronavirus and no one at work has the virus. History - Past Medical History Respiratory: reports: Asthma GI: reports: Crohn's disease MRSA Hx?: No - Past Surgical History General: reports: Colonoscopy HEENT: reports: Tonsil/Adenoidectomy - Family & Social History Family History Comment/Other: Mother had a history of breast cancer. His mother also reports that the whole family suffers from migraines. Living arrangement: At home Living Situation: With friend(s) Social History Notes: His mother tells me that he lives at home with his roommate. He works at [employer] and has been doing well at work. She states he does not smoke and rarely uses alcohol. She denies any prior history of IV drug use to her knowledge. - POLST Patient has POLST: No Meds/Allgy - Home Medications Home Medications: Ambulatory Orders Medication Instructions Recorded Confirmed Albuterol Sulf [Ventolin Hfa 2 puffs INH Q4HR PRN #1 inhaler 10/27/16 10/29/16 Inhaler] Albuterol Sulfate [Proventil Hfa 1 - 2 puffs INH Q4H PRN 10/27/16 10/29/16 Inhaler] Ipratropium/Albuterol [Combivent 4 gm IH PRN PRN 10/27/16 10/29/16 Respimat] - Allergies Allergies/Adverse Reactions: Allergies Allergy/AdvReac Type Severity Reaction Status Date / Time cefaclor [From Ceclor] Allergy Intermediate Hives Verified 05/17/19 21:45 mesalamine [From Asacol] Allergy Intermediate Hives Verified 05/17/19 21:45 Sulfa (Sulfonamide Allergy Intermediate Hives Verified 05/17/19 21:45 Antibiotics) Review of Systems - All Other Systems All Other Systems: reports: Other (Unable to obtain as the patient is intubated.) Prior Level of Functionality: He is independent with his ADLs. Exam - Vital Signs Reviewed Vital Signs: Yes Vital Signs: Vital Signs x48h Temp Pulse Resp BP Pulse Ox 05/17/19 23:00 98 20 133/97 H 100 05/17/19 22:54 102 H 20 134/86 H 100 05/17/19 22:42 117 H 20 148/111 H 100 05/17/19 22:32 36.6 C 113 H 18 131/98 H 100 05/17/19 22:31 113 H 18 131/88 H 100 05/17/19 22:14 103 H 18 130/80 100 05/17/19 21:51 36.4 C L 95 18 111/65 96 05/17/19 21:45 98 18 111/65 91 L - Physical Exam General Appearance: positive: Other (He is intubated and sedated on propofol.) Eyes Bilateral: positive: Other (Pupils were initially constricted upon arrival to emergency department. They are now 3 mm bilaterally and reactive to light.) ENT: positive: Other (ET tube is in place. NG tube is also in place in the right naris. There is green food particles being suctioned.) Neck: positive: Nml inspection Respiratory: positive: Breath sounds nml. negative: Wheezes, Rales, Rhonchi Cardiovascular: positive: No murmur, Tachycardia. negative: Irregularly irregular, Systolic murmur Abdomen: positive: Non-tender, Nml bowel sounds, No distention. negative: Tenderness Skin: positive: No rash, Warm, Dry Extremities: positive: No pedal edema Neurologic/Psychiatric: positive: Other (He is sedated and unable to assess neurologic status. No clonus on exam.) Conclusion/Plan - Problem List (1) Overdose Conclusion/Plan: It appears he has had some sort of overdose although not clear if it was intentional or not. She made reportedly found blue pills at home and there was also reportedly crushed up pills with a straw that were found. His mother does report prior history of opiate abuse and a prior episode of intentional overdose with Xanax. Although CPR started by the roommate, it does not appear that he arrested as EMS found him with a pulse although he did have agonal respirations. CT the head does not show any acute abnormalities. Surprisingly his urine toxicology screen is negative. Salicylates, acetaminophen, alcohol are also all negative. He did respond to Narcan in the emergency department so suspect he most of taken some sort of opiate that caused him to become unresponsive. At this time, we will keep him on the ventilator and sedate him with propofol and Versed as needed. We will hope to extubate him in the morning if he is oxygenating well and his mental status is appropriate. We will need to obtain more information from the patient once he is extubated. Will consult social work as he may benefit from drug rehab on discharge. Qualifiers: Encounter type: initial encounter Injury intent: undetermined intent Qualified Code(s): T50.904A - Poisoning by unspecified drugs, medicaments and biological substances, undetermined, initial encounter (2) On mechanically assisted ventilation Conclusion/Plan: He was intubated for airway protection he remains on mechanical ventilation. Given the concern for aspiration and his chest x-ray findings, we will keep him intubated overnight. We will obtain a repeat chest x-ray in the morning. We will hope to extubate him in the morning. (3) Aspiration pneumonitis Conclusion/Plan: His chest x-ray shows haziness to the left lung. There were food particles that were suctioned from the endotracheal tube. Will place him Clindamycin IV empirically but will to discontinue over next 48 hours as this clinically appears to be chemical pneumonitis and not bacterial infection. We will not use Unasyn as he has a reported history of hives to cephalosporins. We will repeat a chest x-ray in the morning. (4) Transaminitis Conclusion/Plan: His LFTs are elevated in the 100s. Suspect this may be secondary to drug ingestion versus possible ischemic hepatitis if he was hypotensive for period of time. His acetaminophen levels are negative as well as alcohol. INR is normal so there is no suspicion for acute liver failure at the moment. We will trend his LFTs. (5) History of asthma Conclusion/Plan: Does not appear to be in exacerbation at the moment. We will place him on albuterol as needed. (6) History of Crohn's disease Conclusion/Plan: Stable. He is currently not receiving any therapy for this per his mother. - Lab Results Lab results reviewed: Yes Fish Bones: 05/17/19 21:50 05/17/19 22:11 - Diagnostic Imaging Results Diagnostic Imaging Results: positive: Final report reviewed - EKG Results EKG Interpreted Independently: Yes EKG Findings: EKG reveals sinus tachycardia. Core Measures - Anticipated LOS I expect patient to be DC'd or transferred within 96 hours.: Yes - Issues Hospital Issues and Management Plan: 28-year-old male who became unresponsive at home and required intubation in the field. He is now admitted for suspected drug overdose and aspiration pneumonia. We will start him on IV antibiotics and sedate him overnight. Will hope to extubate in the morning. - DVT/VTE - Prophylaxis VTE/DVT Device ordered at admit?: Yes VTE/DVT Prophylaxis med ordered at admit?: Yes
[2019-05-17] MEDS ORDERED: LORazepam 2 MG/ML VIAL IVP STA (23:36)
--- NOTE | 2019-05-17 23:39 | XRAY Report ---
Reason: NG TUBE Procedure Date: 05/17/2019 Accession Number: [id number] / [id number] Procedure: XR - Abdomen 1 View X-Ray CPT Code: 08050 Final Report FULL RESULT: EXAM: ABDOMEN RADIOGRAPHY EXAM DATE: 05/17/2019 11:00 PM. CLINICAL HISTORY: NG TUBE. COMPARISON: None. TECHNIQUE: 1 view. FINDINGS: Bowel Gas Pattern: There is moderate gas distention of the stomach. Small bowel and colon are unremarkable. Other: NG tube tip is in the stomach. IMPRESSION: 1. NG tube tip in the stomach. RADIA
[2019-05-17] MEDS ORDERED: MIDAZOLAM 2 MG/2 ML VIAL ONE (23:41)
[2019-05-17] MEDS ORDERED: ALBUTEROL 1 PUFF INH PRN (23:45)
[2019-05-18] MEDS: PROPOFOL 1000 MG/100 ML 100 ML IV SCH ×2 (00:15→03:07)
[2019-05-18] MEDS: SODIUM CHLORIDE FLUSH 0.9% 10 ML SYRINGE IVP SCH ×4 (00:24→21:31)
[2019-05-18] MEDS ORDERED: MIDAZOLAM 50 MG/10 ML VIAL ONE (00:24)
[2019-05-18 00:25] LABS: ABG BASE EXCESS -1.6 mmol/L (-2.0-3.0); ABG HCO3 23.1 mmol/L (22.0-26.0); ABG OXYGEN SATURATION 98 % (94-98); ABG PCO2 39 mmHg (34-45); ABG PH 7.39 (7.35-7.45); ABG PO2 121 mmHg (80-100); ABG TCO2 24.2 MMOL/L (21.0-29.0); ALLEN TEST POSITIVE
[2019-05-18] MEDS ORDERED: MIDAZOLAM DRIP 50 MG/100 ML BAG IV SCH (01:00)
[2019-05-18] MEDS: LACTATED RINGERS 1,000 ML IV SCH ×3 (01:14→20:30)
[2019-05-18 04:58] LABS: BASOPHILS # (AUTO) 0.1 10^3/uL (0.0-0.1); BASOPHILS % (AUTO) 0.4 %; EOSINOPHILS # (AUTO) 0.1 10^3/uL (0.0-0.7); EOSINOPHILS % (AUTO) 0.9 %; HGB - HEMOGLOBIN 11.5 g/dL (14.0-18.0); LYMPHOCYTES # (AUTO) 1.4 10^3/uL (1.5-3.5); LYMPHOCYTES % (AUTO) 8.5 %; MEAN CORPUSCULAR HEMOGLOBIN 29.9 pg (27.0-31.0); MEAN CORPUSCULAR VOLUME 90.6 fL (80.0-94.0); MEAN PLATELET VOLUME 9.4 fL (7.4-11.4); MONOCYTES # (AUTO) 1.3 10^3/uL (0.0-1.0); MONOCYTES % (AUTO) 7.9 %; NEUTROPHILS # (AUTO) 13.2 10^3/uL (1.5-6.6); NEUTROPHILS % (AUTO) 81.6 %; PLT - PLATELET COUNT 290 10^3/uL (130-450); RED BLOOD COUNT 3.84 10^6/uL (4.70-6.10); RED CELL DISTRIBUTION WIDTH 12.2 % (12.0-15.0); WHITE BLOOD COUNT 16.2 x10^3/uL (4.8-10.8)
[2019-05-18 05:06] LABS: ALBUMIN 3.1 g/dL (3.2-5.5); BILIRUBIN,DIRECT 0.1 mg/dL (0.1-0.5); BILIRUBIN,TOTAL 1.1 mg/dL (0.2-1.0); CALCIUM 7.9 mg/dL (8.5-10.3); CREATININE 0.9 mg/dL (0.6-1.2); MAGNESIUM 1.8 mg/dL (1.7-2.8); PHOSPHORUS 2.1 mg/dL (2.5-4.6); TOTAL PROTEIN 5.3 g/dL (6.7-8.2)
[2019-05-18] MEDS ORDERED: POTASSIUM CHLORIDE 20 MEQ/15 ML UDC PO ONE (05:27)
[2019-05-18] MEDS: CLINDAMYCIN 600 MG/50 ML 50 ML IV SCH ×3 (05:58→21:31)
[2019-05-18] MEDS: NEUTRA-PHOS 250 MG TABLET PO SCH ×2 (06:05→08:46)
[2019-05-18] MEDS: PANTOPRAZOLE 40 MG VIAL IVP SCH (06:51)
[2019-05-18] MEDS: SODIUM CHLORIDE FLUSH 0.9% 10 ML SYRINGE IVP PRN ×4 (06:52→19:39)
[2019-05-18] MEDS ORDERED: SODIUM CHLORIDE 0.9% 500 ML ONE (07:24)
[2019-05-18] MEDS: PROPOFOL 500 MG/50 ML 500 MG/50 ML VIAL IV SCH (07:47)
[2019-05-18] MEDS ORDERED: PROPOFOL 500 MG/50 ML 500 MG/50 ML VIAL IVP ONE (08:00)
[2019-05-18 08:08] LABS: MUDS CUTOFF CONCENTRATIONS CUTOFF CONC BELOW:
[2019-05-18 08:24] LABS: AMPHETAMINE SCREEN,URINE NEGATIVE (NEGATIVE); BENZODIAZEPINES SCREEN, URINE NEGATIVE (NEGATIVE); COCAINE SCREEN URINE NEGATIVE (NEGATIVE); METHADONE SCREEN, URINE NEGATIVE (NEGATIVE); METHAMPHETAMINES SCREEN, URINE NEGATIVE (NEGATIVE); OPIATE SCREEN, URINE NEGATIVE (NEGATIVE); OXYCODONE SCREEN, URINE NEGATIVE (NEGATIVE); PROPOXYPHENE SCREEN, URINE NEGATIVE (NEGATIVE); TRICYCLIC ANTIDEPRESSANT,URINE NEGATIVE (NEGATIVE)
--- NOTE | 2019-05-18 08:37 | XRAY Report ---
Reason: Follow up infiltrate. Prior aspiration. Procedure Date: 05/18/2019 Accession Number: [id number] / [id number] Procedure: XR - Chest 1 View X-Ray CPT Code: 16453 Final Report FULL RESULT: EXAM: CHEST RADIOGRAPHY EXAM DATE: 05/18/2019 06:02 AM. CLINICAL HISTORY: Follow up infiltrate. Prior aspiration. COMPARISON: CHEST 1 VIEW 05/17/2019 9:32 PM. TECHNIQUE: 1 view. FINDINGS: Lungs/Pleura: Persistent left perihilar opacities. New right basilar opacity. Improving aeration of both lungs. Mediastinum: Within exam limitations, the cardiomediastinal contour is normal. Other: Endotracheal tube tip 1.4 cm above matthew. Enteric tube extends into stomach. IMPRESSION: 1. New right basilar airspace disease. 2. Decreasing left lung airspace disease and edema. RADIA
[2019-05-18] MEDS: ENOXAPARIN 40 MG/0.4 ML SYRINGE SUBQ SCH (08:58)
[2019-05-18] MEDS ORDERED: MIDAZOLAM IV ONE (09:00)
[2019-05-18] MEDS ORDERED: MIDAZOLAM 2 MG/2 ML VIAL IVP PRN (09:00)
[2019-05-18] MEDS ORDERED: SODIUM CHLORIDE 0.9% IV ONE (09:00)
[2019-05-18] MEDS: KETOROLAC 30 MG/ML VIAL IVP PRN ×2 (12:01→18:15)
[2019-05-18] MEDS ORDERED: PHENOL THROAT SPRAY 177 ML MM PRN (12:42)
[2019-05-18] MEDS: ACETAMINOPHEN 500 MG TABLET PO PRN ×2 (14:08→18:14)
--- NOTE | 2019-05-18 14:34 | PROVIDER PROGRESS NOTE ---
Subjective - Prog Note Date Prog Note Date: 05/18/19 Prog Note Time: 14:27 - Subjective Pt reports feeling: Improved Subjective: Patient examined at approximately 9:20 AM, successfully extubated, able to respond, denied any pain or shortness of breath at that time noted a sore throat typical for overnight intubation Current Medications - Current Medications Current Medications: Active Medications Acetaminophen (Tylenol) 500 mg PO Q4HR PRN PRN Reason: Pain or Fever > 38C (100.4F) Last Admin: 05/18/19 14:08 Dose: 500 mg Albuterol (Mdi: Albuterol) 2 puffs INH Q6HR PRN PRN Reason: Dyspnea Enoxaparin Sodium (Lovenox) 40 mg SUBQ DAILY [facility] Last Admin: 05/18/19 08:58 Dose: 40 mg Lactated Ringer's (Lr) 1,000 mls @ 100 mls/hr IV .Q10H [facility] Last Infusion: 05/18/19 14:14 Dose: 100 mls/hr Clindamycin Phosphate (Cleocin 600 Mg/50 Ml) 50 mls @ 100 mls/hr IV Q8HR [facility] Last Admin: 05/18/19 14:10 Dose: 100 mls/hr Ketorolac Tromethamine (Toradol Inj (30mg)) 30 mg IVP Q6HR PRN PRN Reason: PAIN Stop: 05/23/19 11:18 Last Admin: 05/18/19 12:01 Dose: 30 mg Pantoprazole Sodium (Protonix) 40 mg IVP QDAC [facility] Last Admin: 05/18/19 06:51 Dose: 40 mg Phenol/Menthol (Chloraseptic) 2 sprays MM Q4HR PRN PRN Reason: Mouth Sore Pain Sodium Chloride (Normal Saline Flush 0.9%) 10 ml IVP 0100,0900,1700 [facility] Last Admin: 05/18/19 09:14 Dose: Not Given Sodium Chloride (Normal Saline Flush 0.9%) 10 ml IVP PRN PRN PRN Reason: NEEDED PER PROVIDER ORDERS Last Admin: 05/18/19 09:59 Dose: 10 ml Albuterol Sulfate [Proventil Hfa Inhaler] 1 - 2 puffs INH Q4H PRN 10/27/16 Ipratropium/Albuterol [Combivent Respimat] 4 gm IH PRN PRN 10/27/16 Objective - Vital Signs/Intake & Output Reviewed Vital Signs: Yes Vital Signs: Vital Signs x48h Temp Pulse Pulse Resp BP Pulse Ox 05/18/19 13:00 38.0 C H 87 16 107/65 100 05/18/19 12:00 38 C H 84 12 107/65 99 05/18/19 11:00 38.2 C H 96 21 118/67 100 05/18/19 10:00 38.3 C H 96 18 121/68 100 05/18/19 09:00 38.5 C H 107 H 18 131/81 H 100 05/18/19 08:00 38.3 C H 98 16 123/80 100 05/18/19 07:30 96 05/18/19 07:00 118/68 05/18/19 06:59 38.3 C H 95 16 100 Intake & Output: Intake & Output 05/15/19 05/16/19 05/17/19 05/18/19 23:59 23:59 23:59 23:59 Intake Total 1000 3277.143 Output Total 1450 Balance 1000 1827.143 - Objective General Appearance: positive: Lethargic (Patient seen before and after extubation. Patient appropriately alert given recent sedation, able to follow commands and respond to questions appropriatel within the limits of his vocal cord limitations from recent intubation) ENT: positive: ENT inspection nml Neck: positive: Nml inspection, Thyroid nml, No JVD Respiratory: positive: Chest non-tender, No respiratory distress, Breath sounds nml Cardiovascular: positive: Regular rate & rhythm, No murmur, No gallop Abdomen: positive: Non-tender, No organomegaly, Nml bowel sounds Skin: positive: Color nml Extremities: positive: No pedal edema Neurologic/Psychiatric: positive: CN's nml (2-12), Other (Movement, motor, depressed consistent with recent sedation. Appears to be fairly well oriented, asking appropriate questions, but understandably not oriented to time and place given he was intubated in the field) - Lab Results Fish Bones: 05/18/19 04:35 05/18/19 04:35 Other Labs: Lab Results x24hrs 05/18/19 05/18/19 05/18/19 Range/Units 08:02 04:35 04:35 WBC 16.2 H (4.8-10.8) x10^3/uL RBC 3.84 L (4.70-6.10) 10^6/uL Hgb 11.5 L (14.0-18.0) g/dL Hct 34.8 L (42.0-52.0) % MCV 90.6 (80.0-94.0) fL MCH 29.9 (27.0-31.0) pg MCHC 33.0 (32.0-36.0) g/dL RDW 12.2 (12.0-15.0) % Plt Count 290 (130-450) 10^3/uL MPV 9.4 (7.4-11.4) fL Neut # (Auto) 13.2 H (1.5-6.6) 10^3/uL Lymph # (Auto) 1.4 L (1.5-3.5) 10^3/uL Emanuel # (Auto) 1.3 H (0.0-1.0) 10^3/uL Eos # (Auto) 0.1 (0.0-0.7) 10^3/uL Baso # (Auto) 0.1 (0.0-0.1) 10^3/uL Absolute Nucleated RBC 0.00 x10^3/uL Nucleated RBC % 0.0 /100WBC PT (9.9-12.6) secs INR (0.8-1.2) APTT (24.9-33.3) secs Bld Gas Analysis Time Sample Site ABG pH (7.35-7.45) ABG pCO2 (34-45) mmHg ABG pO2 (80-100) mmHg ABG HCO3 (22.0-26.0) mmol/L ABG Total CO2 (21.0-29.0) MMOL/L ABG O2 Saturation (94-98) % ABG Base Excess (-2.0-3.0) mmol/L Franck Test Respiration Rate b/min O2 Delivery Device Vent Mode FiO2 Tidal Volume mL PEEP cmH2O Sodium 135 (135-145) mmol/L Potassium 3.4 L (3.5-5.0) mmol/L Chloride 103 (101-111) mmol/L Carbon Dioxide 24 (21-32) mmol/L Anion Gap 8.0 (6-13) BUN 16 (6-20) mg/dL Creatinine 0.9 (0.6-1.2) mg/dL Estimated GFR (MDRD) 100 (>89) Glucose 93 (70-100) mg/dL Lactic Acid (0.5-2.2) mmol/L Calcium 7.9 L (8.5-10.3) mg/dL Phosphorus 2.1 L (2.5-4.6) mg/dL Magnesium 1.8 (1.7-2.8) mg/dL Total Bilirubin 1.1 H (0.2-1.0) mg/dL Direct Bilirubin 0.1 (0.1-0.5) mg/dL AST 88 H (10-42) IU/L ALT 90 H (10-60) IU/L Alkaline Phosphatase 52 (42-121) IU/L Total Creatine Kinase (22-269) IU/L Troponin I High Sens (2.3-19.7) ng/L Total Protein 5.3 L (6.7-8.2) g/dL Albumin 3.1 L (3.2-5.5) g/dL Globulin 2.2 (2.1-4.2) g/dL Albumin/Globulin Ratio (1.0-2.2) Lipase (22-51) U/L Urine Color Urine Clarity (CLEAR) Urine pH (5.0-7.5) PH Ur Specific Lamar (1.002-1.030) Urine Protein (NEGATIVE) mg/dL Urine Glucose (UA) (NEGATIVE) mg/dL Urine Ketones (NEGATIVE) mg/dL Urine Occult Blood (NEGATIVE) Urine Nitrite (NEGATIVE) Urine Bilirubin (NEGATIVE) Urine Urobilinogen (NORMAL) E.U./dL Ur Leukocyte Esterase (NEGATIVE) Urine RBC (0-5) /HPF Urine WBC (0-3) /HPF Ur Squamous Epith Cells (<= Few) Urine Bacteria (None Seen) /HPF Urine Casts /LPF Urine Mucus Ur Microscopic Review Urine Culture Comments Nasal Screen MRSA (PCR) (NEGATIVE) Salicylates mg/dL Urine Opiates Screen NEGATIVE (NEGATIVE) Ur Oxycodone Screen NEGATIVE (NEGATIVE) Urine Methadone Screen NEGATIVE (NEGATIVE) Ur Propoxyphene Screen NEGATIVE (NEGATIVE) Acetaminophen (10-30) ug/mL Ur Barbiturates Screen NEGATIVE (NEGATIVE) Ur Tricyclics Screen NEGATIVE (NEGATIVE) Ur Phencyclidine Scrn NEGATIVE (NEGATIVE) Ur Amphetamine Screen NEGATIVE (NEGATIVE) U Methamphetamines Scrn NEGATIVE (NEGATIVE) U Benzodiazepines Scrn NEGATIVE (NEGATIVE) Urine Cocaine Screen NEGATIVE (NEGATIVE) U Cannabinoids Screen POSITIVE H (NEGATIVE) Ethyl Alcohol mg/dL 05/18/19 05/18/19 05/17/19 Range/Units 00:16 00:12 23:40 WBC (4.8-10.8) x10^3/uL RBC (4.70-6.10) 10^6/uL Hgb (14.0-18.0) g/dL Hct (42.0-52.0) % MCV (80.0-94.0) fL MCH (27.0-31.0) pg MCHC (32.0-36.0) g/dL RDW (12.0-15.0) % Plt Count (130-450) 10^3/uL MPV (7.4-11.4) fL Neut # (Auto) (1.5-6.6) 10^3/uL Lymph # (Auto) (1.5-3.5) 10^3/uL Emanuel # (Auto) (0.0-1.0) 10^3/uL Eos # (Auto) (0.0-0.7) 10^3/uL Baso # (Auto) (0.0-0.1) 10^3/uL Absolute Nucleated RBC x10^3/uL Nucleated RBC % /100WBC PT (9.9-12.6) secs INR (0.8-1.2) APTT (24.9-33.3) secs Bld Gas Analysis Time 0024 Sample Site RIGHT RADIAL ABG pH 7.39 (7.35-7.45) ABG pCO2 39 (34-45) mmHg ABG pO2 121 H (80-100) mmHg ABG HCO3 23.1 (22.0-26.0) mmol/L ABG Total CO2 24.2 (21.0-29.0) MMOL/L ABG O2 Saturation 98 (94-98) % ABG Base Excess -1.6 (-2.0-3.0) mmol/L Franck Test POSITIVE Respiration Rate 18 b/min O2 Delivery Device VENTILATOR Vent Mode ASSIST/CONTROL FiO2 35.00 Tidal Volume 585 mL PEEP 5 cmH2O Sodium (135-145) mmol/L Potassium (3.5-5.0) mmol/L Chloride (101-111) mmol/L Carbon Dioxide (21-32) mmol/L Anion Gap (6-13) BUN (6-20) mg/dL Creatinine (0.6-1.2) mg/dL Estimated GFR (MDRD) (>89) Glucose (70-100) mg/dL Lactic Acid 1.8 (0.5-2.2) mmol/L Calcium (8.5-10.3) mg/dL Phosphorus (2.5-4.6) mg/dL Magnesium (1.7-2.8) mg/dL Total Bilirubin (0.2-1.0) mg/dL Direct Bilirubin (0.1-0.5) mg/dL AST (10-42) IU/L ALT (10-60) IU/L Alkaline Phosphatase (42-121) IU/L Total Creatine Kinase (22-269) IU/L Troponin I High Sens (2.3-19.7) ng/L Total Protein (6.7-8.2) g/dL Albumin (3.2-5.5) g/dL Globulin (2.1-4.2) g/dL Albumin/Globulin Ratio (1.0-2.2) Lipase (22-51) U/L Urine Color Urine Clarity (CLEAR) Urine pH (5.0-7.5) PH Ur Specific Lamar (1.002-1.030) Urine Protein (NEGATIVE) mg/dL Urine Glucose (UA) (NEGATIVE) mg/dL Urine Ketones (NEGATIVE) mg/dL Urine Occult Blood (NEGATIVE) Urine Nitrite (NEGATIVE) Urine Bilirubin (NEGATIVE) Urine Urobilinogen (NORMAL) E.U./dL Ur Leukocyte Esterase (NEGATIVE) Urine RBC (0-5) /HPF Urine WBC (0-3) /HPF Ur Squamous Epith Cells (<= Few) Urine Bacteria (None Seen) /HPF Urine Casts /LPF Urine Mucus Ur Microscopic Review Urine Culture Comments Nasal Screen MRSA (PCR) NEGATIVE (NEGATIVE) Salicylates mg/dL Urine Opiates Screen (NEGATIVE) Ur Oxycodone Screen (NEGATIVE) Urine Methadone Screen (NEGATIVE) Ur Propoxyphene Screen (NEGATIVE) Acetaminophen (10-30) ug/mL Ur Barbiturates Screen (NEGATIVE) Ur Tricyclics Screen (NEGATIVE) Ur Phencyclidine Scrn (NEGATIVE) Ur Amphetamine Screen (NEGATIVE) U Methamphetamines Scrn (NEGATIVE) U Benzodiazepines Scrn (NEGATIVE) Urine Cocaine Screen (NEGATIVE) U Cannabinoids Screen (NEGATIVE) Ethyl Alcohol mg/dL 05/17/19 05/17/19 05/17/19 Range/Units 22:11 22:11 21:50 WBC (4.8-10.8) x10^3/uL RBC (4.70-6.10) 10^6/uL Hgb (14.0-18.0) g/dL Hct (42.0-52.0) % MCV (80.0-94.0) fL MCH (27.0-31.0) pg MCHC (32.0-36.0) g/dL RDW (12.0-15.0) % Plt Count (130-450) 10^3/uL MPV (7.4-11.4) fL Neut # (Auto) (1.5-6.6) 10^3/uL Lymph # (Auto) (1.5-3.5) 10^3/uL Emanuel # (Auto) (0.0-1.0) 10^3/uL Eos # (Auto) (0.0-0.7) 10^3/uL Baso # (Auto) (0.0-0.1) 10^3/uL Absolute Nucleated RBC x10^3/uL Nucleated RBC % /100WBC PT 12.6 (9.9-12.6) secs INR 1.1 (0.8-1.2) APTT 29.6 (24.9-33.3) secs Bld Gas Analysis Time Sample Site ABG pH (7.35-7.45) ABG pCO2 (34-45) mmHg ABG pO2 (80-100) mmHg ABG HCO3 (22.0-26.0) mmol/L ABG Total CO2 (21.0-29.0) MMOL/L ABG O2 Saturation (94-98) % ABG Base Excess (-2.0-3.0) mmol/L Franck Test Respiration Rate b/min O2 Delivery Device Vent Mode FiO2 Tidal Volume mL PEEP cmH2O Sodium 135 (135-145) mmol/L Potassium 3.8 (3.5-5.0) mmol/L Chloride 100 L (101-111) mmol/L Carbon Dioxide 26 (21-32) mmol/L Anion Gap 9.0 (6-13) BUN 20 (6-20) mg/dL Creatinine 1.2 (0.6-1.2) mg/dL Estimated GFR (MDRD) 72 L (>89) Glucose 201 H (70-100) mg/dL Lactic Acid (0.5-2.2) mmol/L Calcium 8.3 L (8.5-10.3) mg/dL Phosphorus 6.5 H (2.5-4.6) mg/dL Magnesium 2.3 (1.7-2.8) mg/dL Total Bilirubin 0.4 (0.2-1.0) mg/dL Direct Bilirubin (0.1-0.5) mg/dL AST 136 H (10-42) IU/L ALT 127 H (10-60) IU/L Alkaline Phosphatase 77 (42-121) IU/L Total Creatine Kinase 159 (22-269) IU/L Troponin I High Sens (2.3-19.7) ng/L Total Protein 6.9 (6.7-8.2) g/dL Albumin 3.9 (3.2-5.5) g/dL Globulin 3.0 (2.1-4.2) g/dL Albumin/Globulin Ratio 1.3 (1.0-2.2) Lipase 29 (22-51) U/L Urine Color YELLOW Urine Clarity CLEAR (CLEAR) Urine pH 5.5 (5.0-7.5) PH Ur Specific Lamar >=1.030 H (1.002-1.030) Urine Protein 100 H (NEGATIVE) mg/dL Urine Glucose (UA) NEGATIVE (NEGATIVE) mg/dL Urine Ketones NEGATIVE (NEGATIVE) mg/dL Urine Occult Blood TRACE-INTA (NEGATIVE) Urine Nitrite NEGATIVE (NEGATIVE) Urine Bilirubin NEGATIVE (NEGATIVE) Urine Urobilinogen 0.2 (NORMAL) (NORMAL) E.U./dL Ur Leukocyte Esterase NEGATIVE (NEGATIVE) Urine RBC 6-10 H (0-5) /HPF Urine WBC 0-3 (0-3) /HPF Ur Squamous Epith Cells RARE Squamous (<= Few) Urine Bacteria Rare (None Seen) /HPF Urine Casts 6-10 Hyaline Casts /LPF Urine Mucus Few Strands Ur Microscopic Review INDICATED Urine Culture Comments NOT INDICATED Nasal Screen MRSA (PCR) (NEGATIVE) Salicylates < 6.0 mg/dL Urine Opiates Screen NEGATIVE (NEGATIVE) Ur Oxycodone Screen NEGATIVE (NEGATIVE) Urine Methadone Screen NEGATIVE (NEGATIVE) Ur Propoxyphene Screen NEGATIVE (NEGATIVE) Acetaminophen < 10 L (10-30) ug/mL Ur Barbiturates Screen NEGATIVE (NEGATIVE) Ur Tricyclics Screen NEGATIVE (NEGATIVE) Ur Phencyclidine Scrn NEGATIVE (NEGATIVE) Ur Amphetamine Screen NEGATIVE (NEGATIVE) U Methamphetamines Scrn NEGATIVE (NEGATIVE) U Benzodiazepines Scrn NEGATIVE (NEGATIVE) Urine Cocaine Screen NEGATIVE (NEGATIVE) U Cannabinoids Screen NEGATIVE (NEGATIVE) Ethyl Alcohol < 5.0 mg/dL 05/17/19 05/17/19 05/17/19 Range/Units 21:50 21:50 21:50 WBC 11.1 H (4.8-10.8) x10^3/uL RBC 4.56 L (4.70-6.10) 10^6/uL Hgb 13.5 L (14.0-18.0) g/dL Hct 42.0 (42.0-52.0) % MCV 92.1 (80.0-94.0) fL MCH 29.6 (27.0-31.0) pg MCHC 32.1 (32.0-36.0) g/dL RDW 12.2 (12.0-15.0) % Plt Count 381 (130-450) 10^3/uL MPV 9.1 (7.4-11.4) fL Neut # (Auto) 6.3 (1.5-6.6) 10^3/uL Lymph # (Auto) 3.2 (1.5-3.5) 10^3/uL Emanuel # (Auto) 0.8 (0.0-1.0) 10^3/uL Eos # (Auto) 0.3 (0.0-0.7) 10^3/uL Baso # (Auto) 0.1 (0.0-0.1) 10^3/uL Absolute Nucleated RBC 0.00 x10^3/uL Nucleated RBC % 0.0 /100WBC PT (9.9-12.6) secs INR (0.8-1.2) APTT (24.9-33.3) secs Bld Gas Analysis Time Sample Site ABG pH (7.35-7.45) ABG pCO2 (34-45) mmHg ABG pO2 (80-100) mmHg ABG HCO3 (22.0-26.0) mmol/L ABG Total CO2 (21.0-29.0) MMOL/L ABG O2 Saturation (94-98) % ABG Base Excess (-2.0-3.0) mmol/L Franck Test Respiration Rate b/min O2 Delivery Device Vent Mode FiO2 Tidal Volume mL PEEP cmH2O Sodium (135-145) mmol/L Potassium (3.5-5.0) mmol/L Chloride (101-111) mmol/L Carbon Dioxide (21-32) mmol/L Anion Gap (6-13) BUN (6-20) mg/dL Creatinine (0.6-1.2) mg/dL Estimated GFR (MDRD) (>89) Glucose (70-100) mg/dL Lactic Acid 3.1 H* (0.5-2.2) mmol/L Calcium (8.5-10.3) mg/dL Phosphorus (2.5-4.6) mg/dL Magnesium (1.7-2.8) mg/dL Total Bilirubin (0.2-1.0) mg/dL Direct Bilirubin (0.1-0.5) mg/dL AST (10-42) IU/L ALT (10-60) IU/L Alkaline Phosphatase (42-121) IU/L Total Creatine Kinase (22-269) IU/L Troponin I High Sens 17.4 (2.3-19.7) ng/L Total Protein (6.7-8.2) g/dL Albumin (3.2-5.5) g/dL Globulin (2.1-4.2) g/dL Albumin/Globulin Ratio (1.0-2.2) Lipase (22-51) U/L Urine Color Urine Clarity (CLEAR) Urine pH (5.0-7.5) PH Ur Specific Lamar (1.002-1.030) Urine Protein (NEGATIVE) mg/dL Urine Glucose (UA) (NEGATIVE) mg/dL Urine Ketones (NEGATIVE) mg/dL Urine Occult Blood (NEGATIVE) Urine Nitrite (NEGATIVE) Urine Bilirubin (NEGATIVE) Urine Urobilinogen (NORMAL) E.U./dL Ur Leukocyte Esterase (NEGATIVE) Urine RBC (0-5) /HPF Urine WBC (0-3) /HPF Ur Squamous Epith Cells (<= Few) Urine Bacteria (None Seen) /HPF Urine Casts /LPF Urine Mucus Ur Microscopic Review Urine Culture Comments Nasal Screen MRSA (PCR) (NEGATIVE) Salicylates mg/dL Urine Opiates Screen (NEGATIVE) Ur Oxycodone Screen (NEGATIVE) Urine Methadone Screen (NEGATIVE) Ur Propoxyphene Screen (NEGATIVE) Acetaminophen (10-30) ug/mL Ur Barbiturates Screen (NEGATIVE) Ur Tricyclics Screen (NEGATIVE) Ur Phencyclidine Scrn (NEGATIVE) Ur Amphetamine Screen (NEGATIVE) U Methamphetamines Scrn (NEGATIVE) U Benzodiazepines Scrn (NEGATIVE) Urine Cocaine Screen (NEGATIVE) U Cannabinoids Screen (NEGATIVE) Ethyl Alcohol mg/dL Assessment/Plan - Problem List (1) Respiratory arrest Impression: Patient was intubated in the field. Apparently, the patient was awake playing video games with a friend, when he relatively suddenly collapsed onto the floor lurching forward. His friend who was trained in basic CPR, check for a pulse and found a pulse but he was not breathing so the patient provided respirations while paramedics arrived. In the field, patient was intubated and brought to the ER. Patient was successfully extubated with minimal difficulty this morning at approximately 9:15 AM. Underlying etiology of respiratory arrest is still not yet clear, given the relatively benign urine tox that does not provide any explanation for this. Also, no metabolic disturbances that would explain this. No other clear neurological event such as seizure, stroke given patient's relatively normal neurological status the morning after and after successful extubation. Had a conversation with the patient's mother to extract some history, and she informed me that the father has been diagnosed withCongenital adrenal hyperplasia, and she has recently been diagnosed with an adrenal crisis of some sort. He is also apparently been diagnosed with migraines but has not had any formal treatment for this. Differential at this point includes a dose of unknown substance, metabolic disturbance such as adrenal insufficiency, neurological event such as TIA versus stroke, atypical migraine. We will add a thyroid panel to a.m. labs, check a random a.m. cortisol. Check echocardiogram. MRI is not available until next week.At this point, I think it would be reasonable to hold off for outpatient imaging, but for now continue to monitor for progress, and rule out any other underlying metabolic cause and provide supportive care as needed. (2) Aspiration pneumonitis Impression: Patient apparently had aspiration event during the respiratory arrest, leading to aspiration pneumonitis. Continue clindamycin, doing well. (3) Transaminitis Impression: Transaminitis likely secondary to the vomiting and respiratory arrest. Labs improving. Continue to monitor. (4) Asthma Impression: Mother informs me that he has been complaining of difficulty with breathing lately, but unclear if he has been using inhaler. On presentation to ER, and on today's exam, there is no wheezing, or very little suspicion for an asthma component to the respiratory failure. Qualifiers: Asthma severity: unspecified severity Asthma persistence: unspecified Asthma complication type: unspecified Qualified Code(s): J45.909 - Unspecified asthma, uncomplicated
[2019-05-18] MEDS ORDERED: MORPHINE 2 MG/ML CARPUJECT IVP PRN (16:29)
[2019-05-18] MEDS: MORPHINE 2 MG/ML CARPUJECT IVP PRN ×2 (19:39→21:31)
[2019-05-18] MEDS ORDERED: LACTATED RINGERS 1,000 ML IV SCH (22:00)
[2019-05-19] MEDS: ACETAMINOPHEN 500 MG TABLET PO PRN ×2 (00:30→04:32)
[2019-05-19] MEDS: SODIUM CHLORIDE FLUSH 0.9% 10 ML SYRINGE IVP PRN ×2 (00:31→04:34)
[2019-05-19] MEDS: MORPHINE 2 MG/ML CARPUJECT IVP PRN ×3 (00:31→06:38)
[2019-05-19] MEDS: KETOROLAC 30 MG/ML VIAL IVP PRN ×2 (00:31→06:38)
[2019-05-19 05:19] LABS: BASOPHILS # (AUTO) 0.1 10^3/uL (0.0-0.1); BASOPHILS % (AUTO) 0.9 %; EOSINOPHILS # (AUTO) 0.4 10^3/uL (0.0-0.7); EOSINOPHILS % (AUTO) 5.4 %; HGB - HEMOGLOBIN 11.6 g/dL (14.0-18.0); LYMPHOCYTES # (AUTO) 1.9 10^3/uL (1.5-3.5); LYMPHOCYTES % (AUTO) 25.4 %; MEAN CORPUSCULAR HEMOGLOBIN 29.4 pg (27.0-31.0); MEAN CORPUSCULAR HGB CONC 32.2 g/dL (32.0-36.0); MEAN CORPUSCULAR VOLUME 91.1 fL (80.0-94.0); MEAN PLATELET VOLUME 9.5 fL (7.4-11.4); MONOCYTES # (AUTO) 0.8 10^3/uL (0.0-1.0); MONOCYTES % (AUTO) 10.5 %; NEUTROPHILS # (AUTO) 4.3 10^3/uL (1.5-6.6); NEUTROPHILS % (AUTO) 57.4 %; PLT - PLATELET COUNT 268 10^3/uL (130-450); RED BLOOD COUNT 3.95 10^6/uL (4.70-6.10); RED CELL DISTRIBUTION WIDTH 12.4 % (12.0-15.0); WHITE BLOOD COUNT 7.6 x10^3/uL (4.8-10.8)
[2019-05-19 05:37] LABS: ALBUMIN 3.1 g/dL (3.2-5.5); BILIRUBIN,DIRECT 0.1 mg/dL (0.1-0.5); BILIRUBIN,TOTAL 0.4 mg/dL (0.2-1.0); CALCIUM 8.2 mg/dL (8.5-10.3); CREATININE 0.8 mg/dL (0.6-1.2); MAGNESIUM 2.2 mg/dL (1.7-2.8); PHOSPHORUS 3.9 mg/dL (2.5-4.6); TOTAL PROTEIN 5.8 g/dL (6.7-8.2)
[2019-05-19 05:50] LABS: THYROID STIMULATING HORMONE 0.37 uIU/mL (0.34-5.60)
[2019-05-19 05:52] LABS: FREE T4 (FREE THYROXINE) 0.95 ng/dL (0.58-1.64)
[2019-05-19] MEDS: CLINDAMYCIN 600 MG/50 ML 50 ML IV SCH (06:37)
[2019-05-19] MEDS: PANTOPRAZOLE 40 MG VIAL IVP SCH (06:38)
--- NOTE | 2019-05-19 07:41 | PHARMACY PROGRESS NOTE ---
- Best Possible Medication History Admit Date and Time: 05/17/19 3029 Processed by: Pharmacy Medication History completed: Yes Patient Interview: Completed Secondary Source(s): Pharmacy records As the person ultimately responsible for medication therapy, providers are able to order a medication from an existing home medication list in [facility] via the "Reconcile Routine" prior to Confirmation of that medication by customer support executive. Such practice is discouraged except when the physician, in their clinical judgment, deems that a medical need exists for a medication without regard to previous use.
[2019-05-19] MEDS ORDERED: HYDROcod/ACETAM 5/325 MG TABLET PO PRN (08:53)
[2019-05-19] MEDS: SODIUM CHLORIDE FLUSH 0.9% 10 ML SYRINGE IVP SCH (09:30)
[2019-05-19] MEDS: ENOXAPARIN 40 MG/0.4 ML SYRINGE SUBQ SCH (09:30)
--- NOTE | 2019-05-19 11:54 | Discharge Plan ---
Discharge Plan Problem Reviewed?: Yes Disposition: Home, Self Care Condition: Critical Prescriptions: Mdi: Albuterol 2 puffs INH Q4HR PRN #1 puffs PRN Reason: Shortness of Breath HYDROcod/ACETAM 5/325 [[place] 5/325] 1 tab PO Q8HR PRN #15 tablet PRN Reason: Pain Ibuprofen [Motrin] 600 mg PO Q8HR PRN #60 tablet PRN Reason: Pain Clindamycin [Cleocin] 450 mg PO TID 7 Days #21 capsule SUMAtriptan [Imitrex] 50 mg PO BID PRN #30 tablet PRN Reason: Headache Activity Restrictions: Activity as Tolerated Shower Restrictions: No Driving Restrictions: Yes (No driving while taking narcotic pain medication) Weight Bearing: Full Weight Instruction Topics: Midazolam injection, Propofol injection, Clindamycin injection, Ketorolac injection, Morphine injection solution Plan of Treatment: Follow-up with your PCP. Some things you may want to discuss, your migraine headaches, and it sounds like there may be a family history of brain aneurysms, or other neurological abnormalities. It would not be a bad idea to consider an MRI given the continued headaches and your recent hospitalization.Also, your cortisol level was a little bit on the low side, but still within normal limits. Your thyroid panel was also entirely normal. I think you can return to work when you feel comfortable, but keep in mind it will be unlikely that she can tolerate doing things like lifting 30 pounds several 100 times a night for at least 5 to 7 days. No Smoking: If you smoke, Please STOP! Call for help. Follow-up with: KANE CARTER MD [Physician No Access] -
[2019-05-19] MEDS ORDERED: CLINDAMYCIN 150 MG CAPSULE PO SCH ×2 (12:00)
[2019-05-19] MEDS ORDERED: IBUPROFEN 600 MG TABLET PO SCH (12:00)
--- NOTE | 2019-05-19 12:13 | DISCHARGE SUMMARY ---
"Discharge Summary Admit Date: 05/18/19 Discharge Date: 05/19/19 Discharging Provider: Jose Sheppard MD Primary Care Provider: Rodo Hamilton MD Code Status: Attempt Resuscitation Condition at Discharge: Critical Discharge Disposition: 01 Home, Self Care - DIAGNOSES Admission Diagnoses: Acute Respiratory Arrest Discharge Diagnoses with Status of Each Condition: Acute respiratory arrestStatus post ventilation then extubation within less than 24 hours, breathing well on room air, resolved Chemical pneumonitisImproved Chest wall painStable - HPI History of Present Illness: This is a 28-year-old male with a past medical history significant for Crohn's disease not currently on therapy, asthma, history of opiate abuse, migraines who presents today from home via ambulance after he made found him unresponsive. History is obtained from the emergency department staff as well as the patient's mother as he is intubated. Per staff, the patient was playing video games with his roommate at home when his mate looked over and found the patient unresponsive and slumped over. The patient began CPR for 7 minutes until EMS arrival. The patient's roommate noted that he found blue pills and a drink in the patient's room. Upon EMS arrival, the patient was found to have a pulse but agonal respirations. He was intubated in the field. Upon arrival to our emergency department, the patient received Narcan and immediately he woke up and attempted to get out of bed. He was sedated immediately after on propofol and received rocuronium. The patient had large amounts of food like substance suctioned from his endotracheal tube. There was concern that he had aspirated at home. I spoke with the patient's mother at bedside and she states that she spoke to patient earlier on today and he was doing relatively well. She states he was complaining of a headache which is not unusual for him given his history of migraines. He told his mother that he took Benadryl earlier on in the day. His mother states he normally does not take Tylenol as it upsets his stomach. The patient is currently not taking any medications for his migraines or Crohn's disease. She states he does have a history of opiate abuse in the past but to her knowledge, she does not know if he used anything today. She reports he also does not have a history of IV drug use and has never used meth or heroin to her knowledge. She states he was hospitalized quite a few years ago after he took nearly 90 tablets of Xanax. She states that at that time, the patient's mother was undergoing treatment for breast cancer and underwent a bilateral mastectomy. Her unfortunately left her during this period of time and this put the patient in a difficult family situation which made him quite upset. The patient mother feels that he took the Xanax not to end his life but more as a coping mechanism for the situation at a time. She states he was scheduled to see a psychiatrist last month but that was canceled due to the current pandemic with the novel coronavirus. She states that patient felt like he had a cold a few weeks ago but did not seek medical attention. She stated to her knowledge, he has not come in contact with anybody who has a novel coronavirus and no one at work has the virus. - CONSULTS | PROCEDURES Consultations: None Procedures: Intubation with mechanical ventilation - HOSPITAL COURSE Hospital Course: Mark was intubated overnight after admission. Fortunately, he did quite well early on, and although he did demonstrate evidence of chemical pneumonitis probably secondary to aspiration during his respiratory arrest, he did not become febrile. He was extubated the morning after his admission.He did have some chest wall pain, typical of somebody who had had chest compressions. This was clearly tender to palpation and worsened with movement, and not at all like that of cardiac etiology. He was given initially Toradol IV along with as needed morphine, but this improved by the day of discharge and he was able to be controlled with oral pain medications. After admission, a urine tox was repeated which only tested positive for cannabinoids. Interestingly, despite the fact that he had had Versed in the emergency room for sedation, as well as in the field for intubation, the benzodiazepine panel was still negative on our urine tox screen. Because of the uncertain nature of the event that led to his respiratory arrest, a a.m. cortisol was checked to rule out adrenal crisis, and this was on the low normal side at 4.0, and his TSH and free T4 were also normal. By the day of discharge, he was saturating well on room air, able to ambulate without assistance, with pain control with oral pain medications, and had a normal white blood cell count and no fever. He was deemed to be medically safe for discharge. - ALLERGIES Allergies/Adverse Reactions: Allergies Allergy/AdvReac Type Severity Reaction Status Date / Time cefaclor [From [facility]] Allergy Intermediate Hives Verified 05/17/19 21:45 mesalamine [From Asacol] Allergy Intermediate Hives Verified 05/17/19 21:45 Sulfa (Sulfonamide Allergy Intermediate Hives Verified 05/17/19 21:45 Antibiotics) - MEDICATIONS Home Medications: Ambulatory Orders Medication Instructions Recorded Confirmed Clindamycin [Cleocin] 450 mg PO TID 7 Days #21 capsule 05/19/19 HYDROcod/ACETAM 5/325 [[place] 5/325] 1 tab PO Q8HR PRN #15 tablet 05/19/19 Ibuprofen [Motrin] 600 mg PO Q8HR PRN #60 tablet 05/19/19 Mdi: Albuterol 2 puffs INH Q4HR PRN #1 puffs 05/19/19 SUMAtriptan [Imitrex] 50 mg PO BID PRN #30 tablet 05/19/19 - PHYSICAL EXAM AT DISCHARGE General Appearance: positive: No acute distress Eyes Bilateral: positive: Normal inspection ENT: positive: ENT inspection nml Neck: positive: Nml inspection, Thyroid nml, No JVD Respiratory: positive: Breath sounds nml, Other (Moderate chest wall tenderness to palpation) Cardiovascular: positive: Regular rate & rhythm, No murmur, No gallop Peripheral Pulses: positive: 2+ Abdomen: positive: Non-tender, No organomegaly, Nml bowel sounds Skin: positive: Color nml, No rash Extremities: positive: Non-tender, Full ROM, Nml appearance, No pedal edema Neurologic/Psychiatric: positive: Oriented x3, CN's nml (2-12), Motor nml - LABS Result Diagrams: 05/19/19 04:30 05/19/19 04:30 Other Lab Results: Laboratory Tests 05/17/19 05/17/19 05/17/19 21:50 21:50 21:50 WBC 11.1 H RBC 4.56 L Hgb 13.5 L Hct 42.0 MCV 92.1 MCH 29.6 MCHC 32.1 RDW 12.2 Plt Count 381 MPV 9.1 Neut # (Auto) 6.3 Lymph # (Auto) 3.2 [place] # (Auto) 0.8 Eos # (Auto) 0.3 Baso # (Auto) 0.1 Absolute Nucleated RBC 0.00 Nucleated RBC % 0.0 PT INR APTT Bld Gas Analysis Time Sample Site ABG pH ABG pCO2 ABG pO2 ABG HCO3 ABG Total CO2 ABG O2 Saturation ABG Base Excess Franck Test Respiration Rate O2 Delivery Device Vent Mode FiO2 Tidal Volume PEEP Sodium Potassium Chloride Carbon Dioxide Anion Gap BUN Creatinine Estimated GFR (MDRD) Glucose Lactic Acid 3.1 H* Calcium Phosphorus Magnesium Total Bilirubin Direct Bilirubin AST ALT Alkaline Phosphatase Total Creatine Kinase Troponin I High Sens 17.4 Total Protein Albumin Globulin Albumin/Globulin Ratio Lipase TSH Free T4 Cortisol AM Sample Urine Color Urine Clarity Urine pH Ur Specific [place] Urine Protein Urine Glucose (UA) Urine Ketones Urine Occult Blood Urine Nitrite Urine Bilirubin Urine Urobilinogen Ur Leukocyte Esterase Urine RBC Urine WBC Ur Squamous Epith Cells Urine Bacteria Urine Casts Urine Mucus Ur Microscopic Review Urine Culture Comments Nasal Screen MRSA (PCR) Salicylates Urine Opiates Screen Ur Oxycodone Screen Urine Methadone Screen Ur Propoxyphene Screen Acetaminophen Ur Barbiturates Screen Ur Tricyclics Screen Ur Phencyclidine Scrn Ur Amphetamine Screen U Methamphetamines Scrn U Benzodiazepines Scrn Urine Cocaine Screen U Cannabinoids Screen Ethyl Alcohol 05/17/19 05/17/19 05/17/19 21:50 22:11 22:11 WBC RBC Hgb Hct MCV MCH MCHC RDW Plt Count MPV Neut # (Auto) Lymph # (Auto) [place] # (Auto) Eos # (Auto) Baso # (Auto) Absolute Nucleated RBC Nucleated RBC % PT 12.6 INR 1.1 APTT 29.6 Bld Gas Analysis Time Sample Site ABG pH ABG pCO2 ABG pO2 ABG HCO3 ABG Total CO2 ABG O2 Saturation ABG Base Excess Franck Test Respiration Rate O2 Delivery Device Vent Mode FiO2 Tidal Volume PEEP Sodium 135 Potassium 3.8 Chloride 100 L Carbon Dioxide 26 Anion Gap 9.0 BUN 20 Creatinine 1.2 Estimated GFR (MDRD) 72 L Glucose 201 H Lactic Acid Calcium 8.3 L Phosphorus 6.5 H Magnesium 2.3 Total Bilirubin 0.4 Direct Bilirubin AST 136 H ALT 127 H Alkaline Phosphatase 77 Total Creatine Kinase 159 Troponin I High Sens Total Protein 6.9 Albumin 3.9 Globulin 3.0 Albumin/Globulin Ratio 1.3 Lipase 29 TSH Free T4 Cortisol AM Sample Urine Color YELLOW Urine Clarity CLEAR Urine pH 5.5 Ur Specific [place] >=1.030 H Urine Protein 100 H Urine Glucose (UA) NEGATIVE Urine Ketones NEGATIVE Urine Occult Blood TRACE-INTA Urine Nitrite NEGATIVE Urine Bilirubin NEGATIVE Urine Urobilinogen 0.2 (NORMAL) Ur Leukocyte Esterase NEGATIVE Urine RBC 6-10 H Urine WBC 0-3 Ur Squamous Epith Cells RARE Squamous Urine Bacteria Rare Urine Casts 6-10 Hyaline Casts Urine Mucus Few Strands Ur Microscopic Review INDICATED Urine Culture Comments NOT INDICATED Nasal Screen MRSA (PCR) Salicylates < 6.0 Urine Opiates Screen NEGATIVE Ur Oxycodone Screen NEGATIVE Urine Methadone Screen NEGATIVE Ur Propoxyphene Screen NEGATIVE Acetaminophen < 10 L Ur Barbiturates Screen NEGATIVE Ur Tricyclics Screen NEGATIVE Ur Phencyclidine Scrn NEGATIVE Ur Amphetamine Screen NEGATIVE U Methamphetamines Scrn NEGATIVE U Benzodiazepines Scrn NEGATIVE Urine Cocaine Screen NEGATIVE U Cannabinoids Screen NEGATIVE Ethyl Alcohol < 5.0 05/17/19 05/18/19 05/18/19 23:40 00:12 00:16 WBC RBC Hgb Hct MCV MCH MCHC RDW Plt Count MPV Neut # (Auto) Lymph # (Auto) [place] # (Auto) Eos # (Auto) Baso # (Auto) Absolute Nucleated RBC Nucleated RBC % PT INR APTT Bld Gas Analysis Time 0024 Sample Site RIGHT RADIAL ABG pH 7.39 ABG pCO2 39 ABG pO2 121 H ABG HCO3 23.1 ABG Total CO2 24.2 ABG O2 Saturation 98 ABG Base Excess -1.6 Franck Test POSITIVE Respiration Rate 18 O2 Delivery Device VENTILATOR Vent Mode ASSIST/CONTROL FiO2 35.00 Tidal Volume 585 PEEP 5 Sodium Potassium Chloride Carbon Dioxide Anion Gap BUN Creatinine Estimated GFR (MDRD) Glucose Lactic Acid 1.8 Calcium Phosphorus Magnesium Total Bilirubin Direct Bilirubin AST ALT Alkaline Phosphatase Total Creatine Kinase Troponin I High Sens Total Protein Albumin Globulin Albumin/Globulin Ratio Lipase TSH Free T4 Cortisol AM Sample Urine Color Urine Clarity Urine pH Ur Specific [place] Urine Protein Urine Glucose (UA) Urine Ketones Urine Occult Blood Urine Nitrite Urine Bilirubin Urine Urobilinogen Ur Leukocyte Esterase Urine RBC Urine WBC Ur Squamous Epith Cells Urine Bacteria Urine Casts Urine Mucus Ur Microscopic Review Urine Culture Comments Nasal Screen MRSA (PCR) NEGATIVE Salicylates Urine Opiates Screen Ur Oxycodone Screen Urine Methadone Screen Ur Propoxyphene Screen Acetaminophen Ur Barbiturates Screen Ur Tricyclics Screen Ur Phencyclidine Scrn Ur Amphetamine Screen U Methamphetamines Scrn U Benzodiazepines Scrn Urine Cocaine Screen U Cannabinoids Screen Ethyl Alcohol 05/18/19 05/18/19 05/18/19 04:35 04:35 08:02 WBC 16.2 H RBC 3.84 L Hgb 11.5 L Hct 34.8 L MCV 90.6 MCH 29.9 MCHC 33.0 RDW 12.2 Plt Count 290 MPV 9.4 Neut # (Auto) 13.2 H Lymph # (Auto) 1.4 L [place] # (Auto) 1.3 H Eos # (Auto) 0.1 Baso # (Auto) 0.1 Absolute Nucleated RBC 0.00 Nucleated RBC % 0.0 PT INR APTT Bld Gas Analysis Time Sample Site ABG pH ABG pCO2 ABG pO2 ABG HCO3 ABG Total CO2 ABG O2 Saturation ABG Base Excess Franck Test Respiration Rate O2 Delivery Device Vent Mode FiO2 Tidal Volume PEEP Sodium 135 Potassium 3.4 L Chloride 103 Carbon Dioxide 24 Anion Gap 8.0 BUN 16 Creatinine 0.9 Estimated GFR (MDRD) 100 Glucose 93 Lactic Acid Calcium 7.9 L Phosphorus 2.1 L Magnesium 1.8 Total Bilirubin 1.1 H Direct Bilirubin 0.1 AST 88 H ALT 90 H Alkaline Phosphatase 52 Total Creatine Kinase Troponin I High Sens Total Protein 5.3 L Albumin 3.1 L Globulin 2.2 Albumin/Globulin Ratio Lipase TSH Free T4 Cortisol AM Sample Urine Color Urine Clarity Urine pH Ur Specific [place] Urine Protein Urine Glucose (UA) Urine Ketones Urine Occult Blood Urine Nitrite Urine Bilirubin Urine Urobilinogen Ur Leukocyte Esterase Urine RBC Urine WBC Ur Squamous Epith Cells Urine Bacteria Urine Casts Urine Mucus Ur Microscopic Review Urine Culture Comments Nasal Screen MRSA (PCR) Salicylates Urine Opiates Screen NEGATIVE Ur Oxycodone Screen NEGATIVE Urine Methadone Screen NEGATIVE Ur Propoxyphene Screen NEGATIVE Acetaminophen Ur Barbiturates Screen NEGATIVE Ur Tricyclics Screen NEGATIVE Ur Phencyclidine Scrn NEGATIVE Ur Amphetamine Screen NEGATIVE U Methamphetamines Scrn NEGATIVE U Benzodiazepines Scrn NEGATIVE Urine Cocaine Screen NEGATIVE U Cannabinoids Screen POSITIVE H Ethyl Alcohol 05/19/19 05/19/19 05/19/19 04:30 04:30 04:30 WBC 7.6 RBC 3.95 L Hgb 11.6 L Hct 36.0 L MCV 91.1 MCH 29.4 MCHC 32.2 RDW 12.4 Plt Count 268 MPV 9.5 Neut # (Auto) 4.3 Lymph # (Auto) 1.9 [place] # (Auto) 0.8 Eos # (Auto) 0.4 Baso # (Auto) 0.1 Absolute Nucleated RBC 0.00 Nucleated RBC % 0.0 PT INR APTT Bld Gas Analysis Time Sample Site ABG pH ABG pCO2 ABG pO2 ABG HCO3 ABG Total CO2 ABG O2 Saturation ABG Base Excess Franck Test Respiration Rate O2 Delivery Device Vent Mode FiO2 Tidal Volume PEEP Sodium 137 Potassium 4.2 Chloride 107 Carbon Dioxide 26 Anion Gap 4.0 L BUN 12 Creatinine 0.8 Estimated GFR (MDRD) 115 Glucose 93 Lactic Acid Calcium 8.2 L Phosphorus 3.9 Magnesium 2.2 Total Bilirubin 0.4 Direct Bilirubin 0.1 AST 52 H ALT 76 H Alkaline Phosphatase 53 Total Creatine Kinase Troponin I High Sens Total Protein 5.8 L Albumin 3.1 L Globulin 2.7 Albumin/Globulin Ratio Lipase TSH 0.37 Free T4 0.95 Cortisol AM Sample Urine Color Urine Clarity Urine pH Ur Specific [place] Urine Protein Urine Glucose (UA) Urine Ketones Urine Occult Blood Urine Nitrite Urine Bilirubin Urine Urobilinogen Ur Leukocyte Esterase Urine RBC Urine WBC Ur Squamous Epith Cells Urine Bacteria Urine Casts Urine Mucus Ur Microscopic Review Urine Culture Comments Nasal Screen MRSA (PCR) Salicylates Urine Opiates Screen Ur Oxycodone Screen Urine Methadone Screen Ur Propoxyphene Screen Acetaminophen Ur Barbiturates Screen Ur Tricyclics Screen Ur Phencyclidine Scrn Ur Amphetamine Screen U Methamphetamines Scrn U Benzodiazepines Scrn Urine Cocaine Screen U Cannabinoids Screen Ethyl Alcohol 05/19/19 04:30 WBC RBC Hgb Hct MCV MCH MCHC RDW Plt Count MPV Neut # (Auto) Lymph # (Auto) [place] # (Auto) Eos # (Auto) Baso # (Auto) Absolute Nucleated RBC Nucleated RBC % PT INR APTT Bld Gas Analysis Time Sample Site ABG pH ABG pCO2 ABG pO2 ABG HCO3 ABG Total CO2 ABG O2 Saturation ABG Base Excess Franck Test Respiration Rate O2 Delivery Device Vent Mode FiO2 Tidal Volume PEEP Sodium Potassium Chloride Carbon Dioxide Anion Gap BUN Creatinine Estimated GFR (MDRD) Glucose Lactic Acid Calcium Phosphorus Magnesium Total Bilirubin Direct Bilirubin AST ALT Alkaline Phosphatase Total Creatine Kinase Troponin I High Sens Total Protein Albumin Globulin Albumin/Globulin Ratio Lipase TSH Free T4 Cortisol AM Sample 4.1 Urine Color Urine Clarity Urine pH Ur Specific [place] Urine Protein Urine Glucose (UA) Urine Ketones Urine Occult Blood Urine Nitrite Urine Bilirubin Urine Urobilinogen Ur Leukocyte Esterase Urine RBC Urine WBC Ur Squamous Epith Cells Urine Bacteria Urine Casts Urine Mucus Ur Microscopic Review Urine Culture Comments Nasal Screen MRSA (PCR) Salicylates Urine Opiates Screen Ur Oxycodone Screen Urine Methadone Screen Ur Propoxyphene Screen Acetaminophen Ur Barbiturates Screen Ur Tricyclics Screen Ur Phencyclidine Scrn Ur Amphetamine Screen U Methamphetamines Scrn U Benzodiazepines Scrn Urine Cocaine Screen U Cannabinoids Screen Ethyl Alcohol - DIAGNOSTIC IMAGING Diagnostic Imaging Results: Final report reviewed, Read independently - SEPSIS Current Stage of Sepsis: Ruled out - FOLLOW UP Follow Up: Follow-up with PCP in 1 week, Consider referral to neurology, possibly MRI given recurrence of headaches and unclear etiology of respiratory arrest. - TIME SPENT Time Spent in Discharge (Minutes): 42"
[2019-05-19 13:28] VITALS: BP 109/63
== END 2019-05-19 13:00 | disposition home or self-care (01) | DRG 208 ==
LOC: EDBD → EDUNIT# → ED 21:39 → ICU 23:16
PROVIDERS: ADMIT Internal Medicine; ATTEND Family Medicine Sports Medicine
PROC: 5A1935Z Respiratory Ventilation, Less than 24 Consecutive Hours (ICD-10-PCS; principal; 2019-05-17)
DX: R09.2 Respiratory arrest (principal); J69.0 Pneumonitis due to inhalation of food and vomit; K50.90 Crohn's disease, unspecified, without complications; T17.428A Food in trachea causing other injury, initial encounter; T50.904A Poisoning by unspecified drugs, medicaments and biological substances, undetermined, initial encounter; Y92.019 Unspecified place in single-family (private) house as the place of occurrence of the external cause; J45.909 Unspecified asthma, uncomplicated; F11.11 Opioid abuse, in remission; G43.909 Migraine, unspecified, not intractable, without status migrainosus; R74.8 Abnormal levels of other serum enzymes; R07.89 Other chest pain; Z78.1 Physical restraint status; Z79.51 Long term (current) use of inhaled steroids
CPT/HCPCS: 36415; 36600; 51702; 70450; 71045; 74018; 80048; 80053; 80076; 80306; 80307; 80320; 80329; 81001; 82533; 82550; 82803; 83605; 83690; 83735; 84100; 84439; 84443; 84484; 85025; 85610; 85730; 87150; 93005; 94002; 96361; 96365; 96375; 99291; A9270; J1650; J2250; J7120; 81003; 87086; 94770

== ENCOUNTER 2021-12-16 17:31 | Emergency (ER) | payer OTHER ==
[2021-12-16] MEDS ORDERED: FAMOTIDINE 20 MG/2 ML VIAL IVP STA (17:45)
[2021-12-16] MEDS ORDERED: diphenhydrAMINE INJ 50 MG/ML VIAL IVP STA (17:45)
[2021-12-16] MEDS ORDERED: DEXAMETHASONE 10 MG/ML VIAL IVP STA (17:45)
--- NOTE | 2021-12-16 18:54 | ED Physician Documentation ---
History of Present Illness - Stated complaint Stated Complaint: ALLERGIC REACTION - Chief complaint Chief Complaint: Allergic Rx - History obtained from History obtained from: Patient - Additonal information Additional information: Patient is a 31-year-old male presenting for evaluation with watery and scratchiness to his eyes as well as swelling around his eyes. He reports feeling scratchiness in his throat. He denies lip, tongue swelling. He denies difficulty swallowing. Denies a history of similar reactions in the past. He denies being on any new medications or any new environmental exposures. Review of Systems Constitutional: denies: Fever Eyes: reports: Other (Watery eyes) Nose: denies: Congestion Throat: denies: Sore throat Cardiac: denies: Chest pain / pressure Respiratory: denies: Dyspnea, Cough GI: denies: Abdominal Pain, Vomiting Musculoskeletal: denies: Back pain Neurologic: denies: Headache PD PAST MEDICAL HISTORY - Past Medical History Past Medical History: Yes Cardiovascular: None Respiratory: Asthma Neuro: Migraines Endocrine/Autoimmune: None GI: Crohn's disease : None Psych: None Musculoskeletal: None Derm: None - Past Surgical History Past Surgical History: Yes General: Colonoscopy HEENT: Tonsil/Adenoidectomy - Present Medications Home Medications: Ambulatory Orders Medication Instructions Recorded Confirmed Ibuprofen [Motrin] 600 mg PO Q8HR PRN #60 tablet 05/19/19 12/16/21 Mdi: Albuterol 2 puffs INH Q4HR PRN #1 puffs 05/19/19 12/16/21 - Allergies Allergies/Adverse Reactions: Allergies Allergy/AdvReac Type Severity Reaction Status Date / Time cefaclor [From Ceclor] Allergy Intermediate Hives Verified 12/16/21 17:36 mesalamine [From Asacol] Allergy Intermediate Hives Verified 12/16/21 17:36 Sulfa (Sulfonamide Allergy Intermediate Hives Verified 12/16/21 17:36 Antibiotics) - Social History Does the pt smoke?: No Smoking Status: Never smoker Does the pt drink ETOH?: Yes Does the pt have substance abuse?: No - Immunizations Immunizations are current?: Yes - POLST Patient has POLST: No PD ED PE NORMAL - General General: Alert and oriented X 3, No acute distress, Well developed/nourished - HEENT HEENT: Atraumatic, PERRL, EOMI, Moist mucous membranes, Pharynx benign (No oral swelling, uvula is midline, no tongue swelling, normal speech, tolerating secretions, no facial edema apart from periorbital swelling), Other (Mild periorbital edema) - Neck Neck: Supple, no meningeal sign - Cardiac Cardiac: RRR, Strong equal pulses - Respiratory Respiratory: No respiratory distress, Clear bilaterally - Abdomen Abdomen: Soft, Non tender - Derm Derm: Warm and dry, No rash - Extremities Extremities: No edema - Neuro Neuro: Normal speech Results - Vitals Vitals: Vital Signs - 24 hr 12/16/21 12/16/21 12/16/21 17:35 18:02 18:30 Temperature 36 C L Heart Rate 89 68 71 Respiratory 16 17 19 Rate Blood Pressure 148/105 H 151/87 H 130/95 H O2 Saturation 96 99 100 12/16/21 18:58 Temperature 36.9 C Heart Rate 64 Respiratory 20 Rate Blood Pressure 126/85 H O2 Saturation 100 Oxygen O2 Source Room air PD MEDICAL DECISION MAKING - ED course Complexity details: reviewed results, re-evaluated patient ED course: No no patient presenting for evaluation of swelling around his eyes, watering and itchiness. He has no signs of Oral or airway swelling or compromise, no systemic signs to indicate anaphylaxis with clear lung sounds and stable vital signs. Patient was given Decadron Benadryl and Pepcid with quick resolution in his symptoms.Patient was counseled to continue with antihistamines as needed and advised on strict return precautions. 1852 - Patient feels completely back to normal. No signs of swelling around his eyes, voice is normal. No oral swelling.Lungs are clear. Departure - Departure Disposition: 01 Home, Self Care Clinical Impression: Allergic reaction Qualifiers: Encounter type: initial encounter Qualified Code(s): T78.40XA - Allergy, unspecified, initial encounter Condition: Stable Instructions: ED Allergic Reaction General Other Comments: You have had what seems to be an allergic reaction. I am unclear as to what caused your reaction tonight but it seems that your symptoms have resolved. We did give you a dose of a steroid which is a long-acting so you do not need any further doses of that. If you feel any itchiness To your face you can take [id number] Benadryl 25 to 50 mg every 6 hours as needed. If you have any wateriness to your eyes you can also take an [id number] allergy medication such as Zyrtec. If anytime you feel like you are having trouble with breathing or your voice seems abnormal or you notice any swelling around your face then please return to the emergency department. Forms: Activity restrictions Discharge Date/Time: 12/16/21 19:07
[2021-12-16 19:00] VITALS: BP 126/85
== END 2021-12-16 19:07 | disposition home or self-care (01) ==
LOC: ED 17:31
DX: T78.49XA Other allergy, initial encounter (principal); X58.XXXA Exposure to other specified factors, initial encounter
CPT/HCPCS: 96374; 96375; 99282; 99284; J1200